=== PATIENT | male | born 1955 | race Caucasian/White ===

== ENCOUNTER 2016-05-06 20:38 | Inpatient (IN) | payer OTHER ==
--- NOTE | 2016-05-06 20:51 | CPEKG ---
Heart Rate: 110 RR Interval: 545 P-R Interval: 164 QRSD Interval: 88 QT Interval: 320 QTC Interval: 433 P [place]: 66 QRS [place]: 77 T Wave [place]: 72 EKG Severity - ABNORMAL ECG - EKG Impression: SINUS TACHYCARDIA EKG Impression: ATRIAL PREMATURE COMPLEX EKG Impression: PROBABLE INFERIOR INFARCT, OLD Electronically Signed By: Clement Valladares 06-May-2016 23:33:26
--- NOTE | 2016-05-06 20:56 | EDPHY ---
H & P Stated Complaint: pt c/o cp, nausea, intermittent sob, anal fissure surg yesterday HPI/ROS: HPI CHIEF COMPLAINT: Chest tightness, pressure sensation, chills, night sweats, nausea HISTORY OF PRESENT ILLNESS: this patient very pleasant 60-year-old male he is visiting [place] from out of town they live in [place], was here yesterday had anal fissure repair under general anesthesia, presents to the emergency room by ambulance night with chest discomfort he describes it as a pressure band like sensation across his chest with associated nausea chills rigors and night sweats. He also complains of generalized fatigue, muscle aches and joint pain. This patient decided to come to the emergency room tonight as his chest discomfort bandlike pressure sensation across his chest persisted. He was concerned that this may be cardiac in origin. Past Medical History: Coronary artery disease with 1 stent in his LAD. Past Surgical History: nephrectomy for renal donation, recent anal fissure tear repair Social History: remote history of smoking, denies drugs or daily alcohol use, lives in [place] Family History: noncontributory ROS REVIEW OF SYSTEMS: A comprehensive 10 point review of systems is otherwise negative aside from elements mentioned in the history of present illness. Exam Constitutional triage nursing summary reviewed, vital signs reviewed, awake/ alert. ( vital signs noted to be abnormal, hypotensive, tachycardic) Eyes normal conjunctivae and sclera, EOMI, PERRLA. HENT normal inspection, atraumatic, moist mucus membranes, no epistaxis, neck supple/ no meningismus, no raccoon eyes. Respiratory clear to auscultation bilaterally, normal breath sounds, no respiratory distress, no wheezing. Cardiovascular rate normal, regular rhythm, no murmur, no edema, distal pulses normal. Gastrointestinal soft, non-tender, no rebound, no guarding, normal bowel sounds, no distension, no pulsatile mass. Genitourinary no CVA tenderness. Musculoskeletal no midline vertebral tenderness, full range of motion, no calf swelling, no tenderness of extremities, no meningismus, good pulses, neurovascularly intact. Skin pink, warm, & dry, no rash, skin atraumatic. Neurologic awake, alert and oriented x 3, AAOx3, moves all 4 extremities equally, motor intact, sensory intact, CN II-XII intact, normal cerebellar, normal vision, normal speech. Psychiatric normal mood/affect. Heme/Lymph/Immune no lymphadenopathy. Differential diagnosis includes but is not limited to: ACS, Cardiogenic shock, pulmonary embolism, atypical chest pain, pneumothorax, pneumonia, pulmonary embolism, aortic dissection, congestive heart failure, tumor, musculoskeletal pain, esophageal pain, GERD, peptic ulcer disease, pancreatitis Medical Decision Making: this patient had an IV established will have 2 placed, he received IV fluid bolus due to hypotension when he arrived here. We will check an EKG, chest x-ray, blood work, we will rule out pulmonary embolism, rule out ACS. Patient medicated to see if we can get his chest discomfort improved. We will test influenza due to chills muscle aches and joint pain, will check blood cultures. Check x-ray to rule out pneumonia. We will re- evaluate him after IV fluids. EKG interpretation by me on record in [employer] system. Impression Time of EKG this is sinus tachycardia rate of 110, Q-waves present in inferior leads consistent with an old OH, no ST elevation, no significant ST depression, or significant T-wave abnormalities. Intervals are appropriate. Re-evaluation: 2118: At this time patient has had repeat blood pressure at 65/40. Is taking by a manual blood pressure cuff and is real. This times patient is speaking with me he states that he feels fatigued and generalized weak. This time is having a 2nd IV established, a L fluid bolus has been ordered as well as a 2nd 1. I will do a bedside ultrasound to evaluate his cardiac function at this time. 2144: I re-evaluated this patient I did perform a bedside fast exam which did not reveal anything acute. 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 I was able to visualize the pelvis, cardiac , and renal hepatic region. There is no free fluid. At this time this patient is getting a 2nd L fluid. His blood pressure is now 75/50. I did evaluate his rectal region there is some induration and possibly cellulitis. He is exquisitely tender. There is no crepitus. I have ordered this patient IV vancomycin IV Zosyn as it appears most likely this patient is septic. His bedside ultrasound of his heart reveals no cardiac effusion and there appears to be good motion and ventricular screens. I do not see right ventricular heart strain on brief bedside ultrasound. Critical Care: Total Critical Care Time Spent Managing this Patient: 60Minutes. This time was spent Exclusively with this patient. This Care was exclusive of procedures. The Organ System/life at risk was hemodynamics, renal, cardiovascular This Patient was in Critical Condition because severe hypotension 2200: Patient is back from CT scan of his pelvis without contrast due to the a creatinine of 2. I do see soft tissue stranding along the left gluteal cheek, there is a fluid collection present. Most likely gluteal cellulitis rectal abscess. This may be his cause of hypotension. He does have a leukocytosis. He is afebrile here. He is receiving his 3rd L of fluid. His repeat blood pressure at this time is 69/50. I have ordered a stat echocardiogram to make sure this is not his heart as well. If this patient remains hypotensive he may need a central line placed and vasopressor started. ED x-ray chest one view: negative for acute cardiopulmonary disease. Specifically I do not appreciate cardiomegaly, or focal pneumonia infiltrate. Mediastinum is narrow. Image interpreted by myself 2214: Spoke with Dr.Sandra Victor who will come and see and evaluate the patient. 2236: Patient's CT scan reviewed by Dr. Duarte. This shows a perianal stranding, consistent with a cellulitis there is a small fluid collection with a perianal abscess. 2250: Patient this time is getting a echocardiogram. After this echocardiogram is complete I will place a triple-lumen catheter in his right IJ under ultrasound guidance for vasopressor administration. 2250: Dr. Alexandra Victor has seen evaluated the patient she was able to extrude he small amount of pus from the perianal perirectal region small abscess. A wick drain has been placed. 2250: of note on exam I do not appreciate any Josiah gangrene or significant swelling or redness to the scrotum. It is localized to the left gluteus, inner rectal anal region. 2329: Central line placed under sterile conditions by myself. PROCEDURE: A time-out was taken. patient and at bedside verbally consented to this procedure with the triple-lumen catheter. They understand risk versus benefit. This patient had a right IJ triple-lumen catheter placed under ultrasound guidance. This procedure was done sterilely. There were no complications. patient tolerated this procedure very well. There was good blood flow through all 3 ports Dark venous blood,. Wire was returned. Line was placed under ultrasound guidance. Chest x-ray is pending at this time for evaluation of line placement. Once line is confirmed to be in appropriate position patient had Levophed started at 10 mics. no chest pain or shortness of breath or significant neck pain after line placement. Spoke with Dr. Jaramillo of Cardiology he did evaluate see the echo the echo shows ejection fraction of 50-55% no wall motion abnormality, no pericardial effusion , normal appearing echocardiogram. 2330: At this time patient is in septic shock with an infection perirectal region. Patient is getting broad-spectrum antibiotics including IV vancomycin and IV Zosyn. Blood cultures have been sent. A triple-lumen catheter has been established and Levophed is being started. He received a total 4 L of fluid prior to Levophed being started. Lactic acid 2.0. He is stable but in critical condition will be transferred to the ICU for close monitoring. ED x-ray chest one view: This is for line placement. The right IJ central line courses in a correct matter. The tip and in the right atrium. I do not appreciate a pneumothorax on chest x-ray. Source: Patient - Medical/Surgical History Hx Asthma: No Hx Chronic Respiratory Disease: No Hx Diabetes: No Hx Cardiac Disease: Yes Hx Renal Disease: No Hx Cirrhosis: No Hx Alcoholism: No Hx HIV/AIDS: No Hx Splenectomy or Spleen Trauma: No Other PMH: AMI, 1 kidney, hypertension, hyperlipidemia - Social History Smoking Status: Former smoker Constitutional: Initial Vital Signs Temperature (C) 36.9 C 05/06/16 20:41 Heart Rate 118 H 05/06/16 20:41 Respiratory Rate 20 05/06/16 20:41 Blood Pressure 82/56 L 05/06/16 20:41 O2 Sat (%) 91 L 05/06/16 20:41 O2 Delivery Mode Room Air O2 (L/minute) 2 Allergies/Adverse Reactions: No Known Allergies Allergy (Verified 05/06/16 20:44) Home Medications: Medication Instructions Recorded Aspirin [Aspirin 325 mg (*)] 325 mg PO DAILY 05/06/16 Carvedilol [Coreg (*)] 12.5 mg PO DAILY 05/06/16 Lisinopril [Zestril 2.5 mg (*)] 2.5 mg PO DAILY 05/06/16 Simvastatin [Zocor] 20 mg PO DAILY 05/06/16 traZODone [traZODONE 100MG (*)] 100 mg PO HS PRN 05/06/16 Medical Decision Making - Data Points Laboratory Results: Laboratory Results 05/06/16 20:56 05/06/16 20:56 Microbiology Results: MICROBIOLOGY 05/06/16 21:20 Blood Blood Culture - Preliminary 05/06/16 21:29 Blood Blood Culture - Preliminary Medications Given: Discontinued Medications Furosemide (Lasix Injection) 20 mg IVP ONCE ONE Stop: 05/07/16 13:34 Last Admin: 05/07/16 13:50 Dose: 20 mg Hydrocortisone (Solucortef) 100 mg IVP Q8HRS YONI Stop: 11/03/16 13:59 Last Admin: 05/08/16 05:37 Dose: 100 mg Sodium Chloride (Ns) 1,000 mls @ 0 mls/hr IV ONCE ONE PRN Reason: Wide Open Stop: 05/06/16 21:16 Last Admin: 05/06/16 21:30 Dose: 1,000 mls Magnesium Sulfate (Magnesium Sulf 2 Gm (Premix)) 50 mls @ 50 mls/hr IV EDNOW ONE Stop: 05/06/16 22:16 Last Admin: 05/06/16 21:45 Dose: 50 mls Vancomycin/Sodium Chloride (Vancomycin 1 Gm (Premix)) 250 mls @ 250 mls/hr IV EDNOW ONE PRN Reason: Protocol Stop: 05/06/16 22:30 Last Admin: 05/06/16 21:55 Dose: 250 mls Piperacillin/Tazobactam/Dextrose (Zosyn (Premix)) 100 mls @ 200 mls/hr IV EDNOW ONE PRN Reason: Protocol Stop: 05/06/16 22:00 Last Admin: 05/06/16 23:15 Dose: 100 mls Sodium Chloride (Ns) 1,000 mls @ 0 mls/hr IV ONCE ONE PRN Reason: Wide Open Stop: 05/06/16 21:33 Last Admin: 05/06/16 21:00 Dose: 1,000 mls Sodium Chloride (Ns) 1,000 mls @ 0 mls/hr IV ONCE ONE PRN Reason: Wide Open Stop: 05/06/16 22:02 Last Admin: 05/06/16 21:45 Dose: 1,000 mls Norepinephrine 4 mg/ Dextrose 500 mls @ 0 mls/hr IV EDNOW ONE; Titrate PRN Reason: Protocol Stop: 05/06/16 23:01 Last Admin: 05/06/16 23:40 Dose: 500 mls Norepinephrine 4 mg/ Dextrose 500 mls @ 0 mls/hr IV CONT YONI; Titrate PRN Reason: Protocol Stop: 11/03/16 00:29 Last Admin: 05/07/16 09:12 Dose: 500 mls Vasopressin/Dextrose (Vasopressin 0.1 Unit/Ml (Premix)) 250 mls @ 24 mls/hr IV CONT YONI Stop: 11/03/16 00:29 Last Admin: 05/07/16 11:17 Dose: 250 mls Magnesium Sulfate/Dextrose (Magnesium Sulf 1 Gm (Premix)) 100 mls @ 100 mls/hr IV ONCE ONE Stop: 05/07/16 08:45 Last Admin: 05/07/16 09:18 Dose: 100 mls Dobutamine HCl 500 mg/ (Dextrose) 290 mls @ 0 mls/hr IV CONT YONI; Titrate PRN Reason: Protocol Stop: 11/03/16 08:29 Last Admin: 05/07/16 09:24 Dose: 290 mls Ondansetron HCl (Zofran) 4 mg IVP EDNOW ONE Stop: 05/06/16 23:49 Last Admin: 05/06/16 23:50 Dose: 4 mg Departure - Departure Disposition: [facility] Inpatient Acute Clinical Impression: Hypotension, Rectal cellulitis, Rectal abscess, Septic shock Condition: Critical
[2016-05-06 21:06] LABS: ADD MORPH? NO; ADD SCAN? YES; ATYPICAL LYMPHOCYTE FLAG 0 (0-99); FRAGMENT RBC FLAG 0 (0-99); HEMATOCRIT 35.2 % (40.0-51.0); HEMOGLOBIN 12.1 g/dL (13.7-17.5); LIPEMIA HEMOLYSIS FLAG 90 (0-99); MEAN CELL HEMOGLOBIN 30.5 pg (27.9-34.1); MEAN CELL HEMOGLOBIN CONCENTR. 34.4 g/dL (32.4-36.7); MEAN CELL VOLUME 88.7 fL (81.5-99.8); MEAN PLATELET VOLUME 9.5 fL (8.7-11.7); PLATELET CLUMPS FLAG 10 (0-99); PLATELET COUNT 183 10^3/uL (150-400); RED BLOOD CELL COUNT 3.97 10^6/uL (4.40-6.38); RED CELL DISTRIBUTION WIDTH 12.3 % (11.5-15.2)
[2016-05-06 21:08] LABS: INR 1.37 (0.83-1.16); PROTIME(PATIENT) 16.9 SEC (12.0-15.0)
[2016-05-06 21:09] LABS: APTT 31.1 SEC (23.0-38.0)
[2016-05-06 21:10] LABS: LEFT SHIFT FLG 130 (0-99)
[2016-05-06 21:13] LABS: ALANINE AMINOTRANSFERASE 42 IU/L (21-72); ALBUMIN 3.6 g/dL (3.5-5.0); ALKALINE PHOSPHATASE 68 IU/L (38-126); ANION GAP 12 mEq/L (8-16); ASPARTATE AMINOTRANSFERASE 37 IU/L (17-59); BILIRUBIN,TOTAL 1.3 mg/dL (0.1-1.4); BILIRUBIN-CONJUGATED 0.9 mg/dL (0.0-0.5); BILIRUBIN-UNCONJUGATED 0.4 mg/dL (0.0-1.1); CALCIUM 8.4 mg/dL (8.5-10.4); CARBON DIOXIDE 25 mEq/l (22-31); CHLORIDE 95 mEq/L (97-110); CREATININE 2.2 mg/dL (0.7-1.3); GLOMERULAR FILTRATION RATE 31; GLUCOSE 98 mg/dL (70-100); MAGNESIUM 1.2 mg/dL (1.6-2.3); POTASSIUM 4.4 mEq/L (3.5-5.2); SODIUM 132 mEq/L (134-144); TOTAL PROTEIN 6.1 g/dL (6.3-8.2)
[2016-05-06] MEDS ORDERED: NS 1,000 ML IV ONE ×3 (21:15→22:01)
[2016-05-06] MEDS ORDERED: MAGNESIUM SULF 2 GM/WATER 50 ML IV ONE (21:17)
[2016-05-06 21:25] LABS: CREATINE KINASE-MB FRACTION 1.31 ng/mL (0-3.19); TROPONIN I 0.018 ng/mL (0-0.034)
[2016-05-06 21:31] LABS: ADD DIFF? YES; SCAN POSITIVE
[2016-05-06] MEDS ORDERED: PIPERACILLIN/TAZO 4.5 GM/DEX 100 ML IV ONE (21:31)
[2016-05-06] MEDS ORDERED: VANCOMYCIN HCL/NORMAL SALINE 250 ML IV ONE (21:31)
[2016-05-06 21:34] LABS: PLATELET ESTIMATE ADEQUATE (ADEQ)
[2016-05-06] MEDS ORDERED: NOREPINEPHRINE BITARTRATE 4 MG in NS 500 ML IV ONE (22:49)
[2016-05-06] MEDS ORDERED: NOREPINEPHRINE 4 MG/4 ML INJ IV ONE (22:50)
[2016-05-06] MEDS ORDERED: NOREPINEPHRINE BITARTRATE 4 MG in D5W 500 ML IV ONE (23:00)
--- NOTE | 2016-05-06 23:30 | CT ---
CT pelvis without contrast Indication: Anal fissure. Status post anal abscess drainage. Bacteremia. Technique: 1.5 mm thin axial images are performed from the iliac crest to the proximal femurs without intravenous contrast. Coronal and parasagittal reformatted images are reviewed on workstation Findings: There is a inflammatory change around the posterior left perianal region, extending to the subcutaneous fat in the buttock. There is a small Ditzel of air, and a very little amount of fluid vizcaino rrounding the air, towards the left side of the anal canal, measuring maximally 2.2 cm long by 8mm wi de. This is concordant with known recent. A no abscess drainage. The amount of fluid that is remainin g is very little. The fluid otherwise is limited because locally. Given the noncontrasted setting, th ere is no evidence for superior extension of any abscess. No free fluid or ascites in the retroperito neum. Bowels are overall normal. Impression: Very little inflammatory change in the perianal area, with moderate amount of cellulitic change in the left buttock. Very little residual perianal fluid. Findings are discussed with Dr. Clement Valladares.
[2016-05-06] MEDS ORDERED: ONDANSETRON 4 MG/2 ML VIAL ONE (23:44)
[2016-05-06] MEDS ORDERED: ONDANSETRON 4 MG/2 ML VIAL IVP ONE (23:48)
--- NOTE | 2016-05-06 23:52 | GCON ---
[f rep st] CONSULTATION CONSULTATION/HISTORY AND PHYSICAL REFERRING PHYSICIAN: Clement Valladares MD HISTORY OF PRESENT ILLNESS: The patient is a 60-year-old man visiting from [place], who presente d to the emergency room yesterday with 2 weeks of perianal pain, particularly with bowel movements. On presentation yesterday, he was taken to the operating room for exam under anesthesia, where no abs cess was found, but a very large posterior fissure was noted and lateral sphincterotomy performed by Dr. Mcnally. He re-presented tonight complaining of myalgia, fatigue, chills and arthralgias. He was noted to have a white blood cell count of 12. CT scan of the pelvis without contrast shows some perirectal induration and stranding on the left side. PAST MEDICAL HISTORY: Coronary artery disease complicated by a myocardial infarction, status post st ent placement in the LAD; anal fissure, as per history of present illness. PAST SURGICAL HISTORY: Status post donor nephrectomy; and lateral sphincterotomy, per history of pre sent illness. MEDICATIONS: He takes lisinopril, carvedilol, simvastatin, trazodone, and aspirin. ALLERGIES: He has no known drug allergies. SOCIAL HISTORY: He is , visiting from [facility] with his . He quit smoking yea rs ago. REVIEW OF SYSTEMS: He denied recent chest pain until [facility], in which he had chest pressure. He de nied shortness of breath. He complained of arthralgia, myalgia, fevers, chills, fatigue, and nausea. He stated his perianal pain was slightly improved. PHYSICAL EXAMINATION: VITAL SIGNS: His temperature is 37.3, pulse 106, blood pressure 83/49, respir atory rate 20. HE is satting 95% on 4 L per nasal cannula. GENERAL: He is sleepy but responds to q uestions appropriately. LUNGS: Clear to auscultation. HEART: A regular rhythm and is tachycardic. RECTAL: He has induration and fluctuance now of the left perianal region, as well as a large poste rior fissure noted on inspection. He also has redness and swelling of his scrotum. ASSESSMENT AND PLAN: Sepsis due to soft tissue infection of the perianal and perineal areas. Fluid resuscitation has begun in the emergency department, and he will be admitted to the ICU under the hos pitalist service for IV antibiotics, pressors, and continued fluid resuscitation and electrolyte repl acement. They will start broad-spectrum antibiotics. Meanwhile, I will perform an exam at the [facility] and I and D of the left perianal area under local anesthetic to explore for any undrained fluid. /[id number]/MODL
--- NOTE | 2016-05-07 00:07 | DX ---
AP portable chest Indication: Triple-lumen central line placement Findings: Right jugular central line placement terminating in SVC. No pneumothorax. Lungs are clear. Heart and mediastinum are normal for patient's age. Impression: No pneumothorax after central line placement.
[2016-05-07] MEDS ORDERED: ONDANSETRON 4 MG/2 ML VIAL IVP PRN (00:14)
--- NOTE | 2016-05-07 00:24 | DX ---
Single view chest Indication: Chest pressure. No priors for comparison. Findings: Lungs are clear. Heart and mediastinum are normal. No consolidation or effusion. No subdiap hragmatic free air. Impression: Clear lungs.
[2016-05-07 01:03] LABS: MIXED VENOUS O2 SATURATION 63 % (65-75)
--- NOTE | 2016-05-07 01:37 | GHP ---
[f rep st] HISTORY AND PHYSICAL DATE OF ADMISSION: 05/06/2016 CHIEF COMPLAINT: Fevers and chest pain. HISTORY OF PRESENT ILLNESS: This is a 60-year-old man who presents with fevers, rigors as well as a bandlike sensation across his chest associated with shortness of breath. His past medical history is notable for coronary artery disease with a stent to his LAD about 6 years ago as well as donating a kidney 7 years ago. About 2 weeks ago, he was diagnosed with an anal fissure. He lives in [place], is visiting out [facility] for the holidays. Yesterday, he presented to the emergency room here with severe anal pain. He was taken to the operating room by Dr. Mcnally who was concerned about an anal abscess. He was exa mined under anesthesia and did not find an abscess at that point, only a large anal fissure. He was then sent home. He re-presented today with fevers, chills, rigors and chest pain. In the emergency department here, he underwent an exam by Dr. Victor who did find a very deep abscess. She was able t o express some pus which was sent for culture. She also noted that his left testicle was quite large . It was also erythematous. He was hypotensive, thought to be in septic shock; however, given his c ardiac history, a stat ultrasound was ordered. This showed no wall motion abnormalities with an EF o f about 55%. PAST MEDICAL/SURGICAL HISTORY: 1. Coronary artery disease, status post stent to his LAD. 2. Donation of 1 kidney. MEDICATIONS: Please see medication reconciliation. ALLERGIES: None. FAMILY HISTORY: He is adopted. SOCIAL HISTORY: Quit smoking tobacco about 3 months ago. He lives in [place]. He is here with his visiting his son and his son's natalie who live in [place]. REVIEW OF SYSTEMS: A 10-point review of systems is conducted and is negative except per HPI. PHYSICAL EXAMINATION: VITAL SIGNS: Initial blood pressure was 82/56, as low as 69/52, heart rate makcey s been in the low 100s, respiration rate 18, saturating 95% on 4 L, temperature is 37.3. GENERAL: T he patient is a pleasant man who appears mildly uncomfortable, otherwise in no acute distress. HEENT : Mucous membranes moist. NECK: Shows a right IJ in place. CARDIOVASCULAR: Shows a regular rate and rhythm. No murmurs, rubs, or gallops. No elevated JVP. No lower extremity edema. PULMONARY: Lungs clear to auscultation bilaterally. ABDOMEN: Soft, nontender, nondistended. : Shows his le ft testicle to be significantly swollen, about the size of a grapefruit, quite erythematous and warm. His perianal region has just been recently surgically explored but there is actually less erythema there. SKIN: No rash. NEUROLOGIC: Shows him to be alert and oriented x3. He is moving all extrem ities. PSYCHIATRIC: Shows normal mood and affect. LABORATORY DATA: White count is 12.1. He has 26% bands and 53% neutrophils. Hemoglobin is 12.1. D -dimer is 1.2. INR is 1.3. Lactate is 2.0. Sodium is 132, creatinine is 2.2. BNP is 3120. Influe nza was negative. DATA: 1. I discussed this with Dr. Victor. 2. I personally viewed and interpreted his most recent chest x-ray that shows a central line in good position with no complications. 3. I reviewed his pelvis CT which shows some inflammatory change with a small amount of air. 4. EKG, which I personally reviewed and interpreted, shows sinus tachycardia. He has Q-waves in II, III, F. I do not see any acute ischemic changes. IMPRESSION AND PLAN: A 60-year-old man who presents with septic shock: 1. Septic shock: Source is likely perianal abscess, status post I and D by Dr. Victor. He has a ce ntral line in place. He is currently getting pressors. He has received appropriate fluid. He will be placed in the ICU. I spent 55 minutes of critical care time managing this diagnosis. 2. Perianal abscess: As above, status post I and D by Dr. Victor. The purulent exudate has been se nt for culture. He also has blood cultures pending. Currently getting broad-spectrum antibiotics wi th vancomycin and Zosyn. He has significant erythema extending over his left testicle. At this poin t, I do not think this is Josiah gangrene as this likely stems from the perianal abscess though we will need to monitor this very closely. If the testicle continues to enlarge, would involve Urology though I do not think an emergent consult is needed right now. Taking him to the operating room woul d be quite dangerous given his hemodynamic instability, as well. 3. Chest pain: I think that this is most likely demand ischemia in the setting of his septic shock. Fortunately, his echocardiogram was relatively unremarkable. Will check another troponin in the mo rning. Also I have reviewed his EKG which was normal. Will involve Cardiology if he has any signifi cant troponin elevation. 4. Acute kidney injury: Concerning in the setting of one kidney. This is likely due to sepsis. He is also on lisinopril for his heart. Will hold nephrotoxins and aggressively hydrate overnight. Wi ll recheck in the morning. 5. Mild hyponatremia. 6. Coagulopathy. 7. History of coronary artery disease, status post stent to his LAD. 8. Code status. I discussed this with him and his . He would want to be full code, full tube. 9. VTE risk: He is moderate to high. I have given him subcu heparin for now. /[id number]/MODL
[2016-05-07] MEDS: VASOPRESSIN/DEXTROSE 250 ML IV SCH ×2 (01:54→11:17)
[2016-05-07 02:07] LABS: MIXED VENOUS O2 SATURATION 59 % (65-75)
[2016-05-07 03:03] LABS: GLUCOSE 113 mg/dL (70-100)
[2016-05-07 03:07] LABS: MIXED VENOUS O2 SATURATION 58 % (65-75)
[2016-05-07] MEDS: PROMETHAZINE HCL 25 MG/ML VIAL IVP PRN ×3 (03:17→21:03)
[2016-05-07 03:47] LABS: MIXED VENOUS O2 SATURATION 63 % (65-75)
[2016-05-07] MEDS: NOREPINEPHRINE BITARTRATE 4 MG in D5W 500 ML IV SCH ×2 (04:56→09:12)
[2016-05-07] MEDS: DEXTROSE IV SCH ×4 (05:24→23:46)
[2016-05-07] MEDS: TAZOBACTAM IV SCH ×4 (05:24→23:46)
[2016-05-07] MEDS: PIPERACILLIN IV SCH ×4 (05:24→23:46)
[2016-05-07] MEDS: HEPARIN 5,000 UNIT/0.5 ML SYR SC SCH ×3 (05:25→22:00)
[2016-05-07 05:30] LABS: MIXED VENOUS O2 SATURATION 55 % (65-75)
[2016-05-07 05:46] LABS: ADD DIFF? YES; ADD MORPH? NO; ATYPICAL LYMPHOCYTE FLAG 0 (0-99); FRAGMENT RBC FLAG 0 (0-99); HEMATOCRIT 32.6 % (40.0-51.0); LIPEMIA HEMOLYSIS FLAG 80 (0-99); MEAN CELL HEMOGLOBIN 30.6 pg (27.9-34.1); MEAN CELL HEMOGLOBIN CONCENTR. 33.7 g/dL (32.4-36.7); MEAN CELL VOLUME 90.6 fL (81.5-99.8); MEAN PLATELET VOLUME 9.8 fL (8.7-11.7); PLATELET CLUMPS FLAG 20 (0-99); PLATELET COUNT 144 10^3/uL (150-400); RED CELL DISTRIBUTION WIDTH 12.6 % (11.5-15.2)
[2016-05-07 05:47] LABS: ADD SCAN? NO; LEFT SHIFT FLG 300 (0-99)
[2016-05-07 05:56] LABS: INR 1.75 (0.83-1.16); PROTIME(PATIENT) 20.5 SEC (12.0-15.0)
[2016-05-07 06:02] LABS: ALANINE AMINOTRANSFERASE 39 IU/L (21-72); ALBUMIN 2.8 g/dL (3.5-5.0); ALKALINE PHOSPHATASE 60 IU/L (38-126); ANION GAP 11 mEq/L (8-16); ASPARTATE AMINOTRANSFERASE 34 IU/L (17-59); CALCIUM 7.3 mg/dL (8.5-10.4); CARBON DIOXIDE 20 mEq/l (22-31); CHLORIDE 98 mEq/L (97-110); CREATININE 2.1 mg/dL (0.7-1.3); GLOMERULAR FILTRATION RATE 33; GLUCOSE 118 mg/dL (70-100); MAGNESIUM 1.6 mg/dL (1.6-2.3); POTASSIUM 5.1 mEq/L (3.5-5.2); SODIUM 129 mEq/L (134-144); TOTAL PROTEIN 5.3 g/dL (6.3-8.2)
--- NOTE | 2016-05-07 06:14 | SOAPPROG ---
SOAP Progress Note Assessment/Plan: Assessment: 2 days s/p lateral sphincterotomy for large posterior anal fissure by Dali 1 day s/p I&D of high perirectal abscess by Kayleigh significant erythema and edema of scrotum Plan: continue broad spectrum IV antibiotic therapy, pressors, supportive care follow perineal soft tissue infection for possible Josiah's 05/07/16 06:11 Subjective: pain controlled Objective: Vital Signs Temp Pulse Resp BP Pulse Ox 36.8 C 110 H 25 H 116/79 94 05/07/16 03:00 05/07/16 06:00 05/07/16 06:00 05/07/16 06:00 05/07/16 06:00 Laboratory Results 05/07/16 05:10 05/07/16 05:10 05/06/16 05/07/16 05/08/16 05:59 05:59 05:59 Intake Total 3500 Output Total 800 Balance 2700 PT 20.5 SEC (12.0-15.0) H 05/07/16 05:10 INR 1.75 (0.83-1.16) H 05/07/16 05:10 Physical Exam - Physical Exam General Appearance: alert Male Genitalia: other (scrotal edema and erythema about the same) ICD10 Worksheet Patient Problems: Problems Problem Status Diagnosed Hypotension Acute Rectal abscess Acute Rectal cellulitis Acute Rectal pain Acute Septic shock Acute
[2016-05-07 06:18] LABS: MIXED VENOUS O2 SATURATION 54 % (65-75)
[2016-05-07] MEDS: NS 1,000 ML IV SCH ×2 (06:22→15:55)
[2016-05-07 06:35] LABS: TROPONIN I 0.027 ng/mL (0-0.034)
[2016-05-07 06:40] LABS: PLATELET ESTIMATE ADEQUATE (ADEQ)
[2016-05-07] MEDS ORDERED: PROTOCOL MAGNESIUM 1 DOSE IV PRN (07:05)
[2016-05-07 07:20] LABS: MIXED VENOUS O2 SATURATION 56 % (65-75)
[2016-05-07] MEDS ORDERED: MAGNESIUM SULF 1 GM/DEXTROSE 100 ML IV ONE (07:46)
[2016-05-07] MEDS ORDERED: DOBUTamine 500 MG in D5W 250 ML IV SCH (08:30)
--- NOTE | 2016-05-07 08:30 | ECHO ---
[id number] + + [address] : : [place] [address] : : [phone] + + Adult Echocardiographic Report + + :Name: TIFFANIE JACOBS Date: 05/06/2016 11:00 PM : : Hospital Admission Number: [id number] Location: ER: :: 1955 Gender: Male : :Age: 60 yrs Race: WH : :Reason For Study: hypotension : :History: No previous : + + MMode/2D Measurements & Calculations IVSd: 1.1 cm LVIDd: 4.8 cm FS: 25.6 % LVLd ap4: 9.1 cm LVPWd: 0.95 cm LVIDs: 3.6 cm EDV(Teich): 109.6 mlEDV(MOD-sp4): 116.0 ml ESV(Teich): 54.4 ml LVLs ap4: 8.3 cm EF(Teich): 50.3 % ESV(MOD-sp4): 48.0 ml EF(MOD-sp4): 58.6 % SV(MOD-sp4): 68.0 ml Normal Measurement Values: + + :LVIDd (3.5-5.7cm) IVSd (0.6-1.1cm) LVPWd (0.6-1.1cm) Aortic Root (2.0-3.7cm)Left Atrium (1.5-4.0cm): :LV Vol(d) (76-115ml) LV Vol(s) (29-48ml) Ejec Fraction (50-65%)PV Delbert (0.6- 1.2m/s) TV Delbert (0.4-1.0m/s) : :MV E Delbert (0.8-1.0m/s)MV A Delbert (0.3-1.0m/s)LVOT Delbert (0.7-1.2m/s) Asc Ao Delbert ( 0.9-1.8m/s) : + + Doppler Measurements & Calculations Ao V2 max: PA V2 max: PI end-d delbert: TR max delbert: 107.0 cm/sec 88.0 cm/sec 111.0 cm/sec 189.0 cm/sec Ao max PG: PA max PG: TR max P.6 mmHg 3.1 mmHg 14.3 mmHg Ao mean PG: RAP systole: 2.0 mmHg 15.0 mmHg Ao V2 mean: RVSP(TR): 29.3 mmHg 71.4 cm/sec Ao V2 VTI: 16.3 cm Left Ventricle The left ventricle is normal in size and function. There is normal left ventricular wall thickness. Ejection Fraction = 50 - 55%. Right Ventricle The right ventricle is normal size. Atria The left atrial size is normal. Right atrial size is normal. The interatrial septum is intact with no evidence for an atrial septal defect. Mitral Valve The mitral valve is normal in structure and function. There is no mitral regurgitation noted. Tricuspid Valve The tricuspid valve is normal in structure and function. There is mild tricuspid regurgitation. Right ventricular systolic pressure is normal. Aortic Valve The aortic valve is normal in structure and function. There is no aortic stenosis. There is no aortic insufficiency. Pulmonic Valve The pulmonic valve is normal in structure and function. There is no pulmonic valvular stenosis. Trace pulmonic valvular regurgitation. Pericardium/Pleural There is a fat pad seen. There is no pericardial effusion. Conclusion A complete two-dimensional transthoracic echocardiogram was performed (2D, M-mode, Doppler and color flow Doppler). This is a limited echo to assess overall function. The left ventricle is normal in size and function. Ejection Fraction = 50-55%. Mild TR and trace PI Final Reading Physician: Stevie Busch signed on 05/07/2016 08:29 AM Ordering Physician: Clement Valladares Performed By: Britney Killian
--- NOTE | 2016-05-07 08:39 | HOSPPROG ---
Hospitalist Progress Note Assessment/Plan: #Septic shock; -due to perirectal abscess -POD #[address] Victor -cultures with gram + cocci. Cont Vanc/Zosyn -currently on Vaso, Levophed and Dobutamine started this morning -ID consulting today #Perirectal abscess -plan as stated above #Leukocytosis -due to above. Blood cx NGTD -fluid cx pending #Pain -currently well-controlled on oxycodone #CAD -stent to LAD in 2009. 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 Hold Coreg and MARIE-I #VINI: due to hypotension #Anal fissure -POD #2 lateral sphincterotomy #Hypomagnesium -repleting #Diet: NPO #DVT ppx: SQH #Disp: warrants ICU admission: requiring IV pressors and abx Subjective: burning pain in scrotum. Nausea this morning Objective: Vital Signs Temp Pulse Resp BP Pulse Ox 36.8 C 110 H 28 H 134/85 H 93 05/07/16 08:00 05/07/16 08:00 05/07/16 08:00 05/07/16 08:00 05/07/16 08:00 Microbiology 05/06/16 22:36 Gram Stain - Final Anus - Swab Laboratory Results 05/07/16 05:10 05/07/16 05:10 05/06/16 05/07/16 05/08/16 05:59 05:59 05:59 Intake Total 4903.1 Output Total 800 Balance 4103.1 PT 20.5 SEC (12.0-15.0) H 05/07/16 05:10 INR 1.75 (0.83-1.16) H 05/07/16 05:10 - Physical Exam Constitutional: uncomfortable Eyes: PERRL, anicteric sclera Ears, Nose, Mouth, Throat: moist mucous membranes, hearing normal Cardiovascular: regular rate and rhythym, no murmur, rub, or gallop Respiratory: no respiratory distress, reduced air movement (decreased BS at bases) Gastrointestinal: normoactive bowel sounds, soft, non-tender abdomen Genitourinary: other (scrotal edema, painful with touch. Erythematous.) Skin: warm Musculoskeletal: full muscle strength Neurologic: AAOx3 Psychiatric: interacting appropriately ICD10 Worksheet Patient Problems: Problems Problem Status Diagnosed Hypotension Acute Rectal abscess Acute Rectal cellulitis Acute Rectal pain Acute Septic shock Acute
--- NOTE | 2016-05-07 08:58 | GOP ---
[f rep st] OPERATIVE REPORT DATE OF OPERATION: SURGEON: Alexandra Victor MD PREOPERATIVE DIAGNOSIS: Soft tissue infection with possible deep left perirectal abscess. POSTOPERATIVE DIAGNOSIS: Soft tissue infection with possible deep left perirectal abscess. PROCEDURE PERFORMED: I and D of left perirectal abscess. FINDINGS: Abscess pocket of the left perirectal area, deep with minimal purulent drainage. SPECIMENS: Cloudy fluid sent for Gram stain and culture. ESTIMATED BLOOD LOSS: 10 mL. DESCRIPTION OF PROCEDURE: Local anesthetic was injected intradermally and subcutaneously at the site of left perianal induration and fluctuance. Two possible sites of fluctuance were noted; 1 cm incis ions were made at both sites using an 11 blade. A small amount of cloudy fluid was expressed, and a long cavity was entered when probed with a cotton swab. The fluid was sent for Gram stain and cultur e. The cavity was packed with half-inch Nu Gauze, and further dressed with 4 x 4 gauzes and ABD and mesh briefs. The patient tolerated the procedure well, and will be admitted to the ICU for broad-spe ctrum antibiotic therapy. INDICATIONS FOR THE PROCEDURE: Bebeto is a 60-year-old man who had lateral sphincterotomy for a lar ge posterior fissure yesterday with Dr. Mcnally after noting 2 weeks of perianal and perirectal filemon n with bowel movements. He presented today with a white count and fevers, chills, tachycardia and hy potension, noting induration and cellulitis of the perineal and perirectal area. He opted for explor ation and I and D of a possible deep perirectal abscess under local anesthetic. /[id number]/MODL
[2016-05-07] MEDS: VANCOMYCIN 1.5 GM in D5W 250 ML IV SCH (10:45)
[2016-05-07 11:10] LABS: MIXED VENOUS O2 SATURATION 59 % (65-75)
--- NOTE | 2016-05-07 11:28 | GCON ---
[f rep st] CONSULTATION CONSERVATOR ARTIFACTS CONSULTATION. REASON FOR ADMISSION: Sepsis. HISTORY OF PRESENT ILLNESS: The patient is a very pleasant 60-year-old white male with a past medica l history of coronary artery disease for which he has undergone stenting. He also has a history of a donation of 1 kidney. He presented to the emergency room with complaints of chest pressure. Two we eks prior, he was diagnosed with anal fissure. He presented to the emergency room the day before yes terday with increasing anal pain. He was taken the operating room and it was felt he may have an saray abscess but an abscess was not found at that point and he was sent home. He presented to the emerg ency room again today with chills and rigors as well as his chest tightness. He describes it as a ba ndlike across his chest without radiation. Dr. Alexandra Victor evaluated the patient, found a very ryder p abscess and some pus was expressed and was sent for culture. He is currently in the intensive care unit, feels somewhat better, though he still remains hypotensive and continues with some chest tight ness. Echocardiogram in the emergency room showed an ejection fraction of 55%. PAST MEDICAL HISTORY: Significant for donation of a kidney, coronary artery disease. PAST SURGICAL HISTORY: He had a stent to the LAD. ALLERGIES: No known allergies to medications. SOCIAL HISTORY: Previous heavy smoker, none for approximately 3 months. No significant alcohol use. He resides in [place]. He is here visiting his son. PHYSICAL EXAMINATION: VITAL SIGNS: Blood pressure is 134/85, pulse 110, respirations 28, temperatur e 36.8, oxygen saturation 98% on 2 L. GENERAL: He is a well-developed 60-year-old white male who is resting with mild chest pain. HEENT: Eyes: MICHELL. EOMI. Throat shows no erythema or tonsillar hy pertrophy. NECK: Supple. No cervical adenopathy. HEART: Regular rate and rhythm with a 2/6 systo lic murmur at the left sternal border without radiation. LUNGS: Diminished breath sounds but no whe mary. ABDOMEN: Soft, nontender. Bowel sounds present in all 4 quadrants. EXTREMITIES: There is no clubbing, cyanosis or edema. LABORATORIES: White count is 14, hemoglobin 11, hematocrit 32, platelet count is 144. INR is 1.75. Sodium 129, potassium 5.1, chloride 98, CO2 is 20, BUN 23, creatinine is 2.1. Glucose is 113. BNP is elevated at 4110. Albumin 2.8. Cultures are currently pending. Chest x-ray shows a right central line placed with no pneumothorax. Lungs are clear. IMPRESSION: 1. Chest pain. Given the history of coronary artery disease, this is likely ischemic. 2. Perianal abscess, currently on broad-spectrum antibiotics. 3. Septic shock. 4. Acute renal insufficiency. 5. Hyponatremia. 6. Coronary artery disease. RECOMMENDATIONS: 1. Agree with sepsis protocol. 2. Agree with current antibiotic coverage. 3. DVT and PE prophylaxis. 4. Stress ulcer prophylaxis. 5. Close cardiovascular monitoring. 6. We will consult Infectious Disease. 7. We will consult Cardiology. /[id number]/MODL
[2016-05-07] MEDS ORDERED: traZODone 100 MG TAB PO PRN (11:38)
[2016-05-07] MEDS ORDERED: HYDROCORTISONE 100 MG/2 ML VIAL ONE (11:50)
[2016-05-07] MEDS: HYDROCORTISONE 100 MG/2 ML VIAL IVP SCH ×2 (11:51→22:01)
[2016-05-07 12:13] LABS: MIXED VENOUS O2 SATURATION 65 % (65-75)
[2016-05-07 13:32] LABS: MIXED VENOUS O2 SATURATION 61 % (65-75)
[2016-05-07] MEDS ORDERED: FUROSEMIDE 20 MG/2 ML VIAL IVP ONE (13:33)
--- NOTE | 2016-05-07 13:40 | SOAPPROG ---
JELENA Progress Note Assessment/Plan: Assessment: Cardiology consultation performed and dictated. See dictation for full cardiology thoughts. 60 y/o man with CAD/RI in 2009 s/p LAD stent doing well from a cardiac standpoint since. Lives in [place], [place] and visiting family in [place], [place] for [place] and admitted with septic shock and anal fissure with abscess. Hypotension on IV Vasopressin and IV DBT s/p 4900cc IVF yesterday. Echo shows LVEF 53% with mild TR and estimated normal PA pressures. Troponin 0.03 and ECG sinus tachycardia with no ischemic ST/T wave changes. Clinically I do not think he is having a RI or unstable. Starting to have some volume overload from all IVFs and single kidney. PLAN: 1)Lasix 20mg IV x one now 2)obviously continue to hold home Coreg and Lisinopril along with ASA and Statin. 3)check AM labs (CBC, BMP and another cardiac troponin) 4)pCXR in am to make not having lots of pulmonary edema. 5)hopefully continue to wean IV Vasopressin and IV DBT as abscess surgically drained and on IV abx. will follow with you. Thanks. 05/07/16 13:35 Objective: Vital Signs Temp Pulse Resp BP Pulse Ox 36.8 C 111 H 20 116/75 93 05/07/16 08:00 05/07/16 13:00 05/07/16 13:00 05/07/16 13:00 05/07/16 13:00 Microbiology 05/06/16 22:36 Gram Stain - Final Anus - Swab Laboratory Results 05/07/16 05:10 05/07/16 05:10 05/06/16 05/07/16 05/08/16 05:59 05:59 05:59 Intake Total 4903.1 Output Total 800 Balance 4103.1 PT 20.5 SEC (12.0-15.0) H 05/07/16 05:10 INR 1.75 (0.83-1.16) H 05/07/16 05:10 ICD10 Worksheet Patient Problems: Problems Problem Status Diagnosed Hypotension Acute Rectal abscess Acute Rectal cellulitis Acute Rectal pain Acute Septic shock Acute
--- NOTE | 2016-05-07 14:49 | GCON ---
[f rep st] CONSULTATION INFECTIOUS DISEASE CONSULTATION DATE OF CONSULTATION: 05/07/2016 REFERRING PHYSICIAN: Delano Brenner DO REASON FOR CONSULTATION: Perirectal abscess for evaluation and opinion. CHIEF COMPLAINT: Perianal pain and left testicular pain, fever and chills. HISTORY OF PRESENT ILLNESS: This is a 60-year-old male with a past medical history significant for coronary artery disease, status post stent, who is visiting from [place], who drove here from [place] from into Saturday of last week. Prior to that, he had been dealing with perianal pain for the past couple of weeks. He had seen his primary care doctor in [place] who could not identify a fissure for certain. He was given some hydrocortisone cream to apply. After he drove here from [place], he was having much more pain. He came into the ER yesterday, and was seen by Dr. Mcnally, and had a lateral sphincterotomy done, but no obvious abscess was identified at that time. He was sent home on pain medications. He came back in later that night with complaints of fever and shaking chills, chest pressure , nausea and vomiting. He was seen in the ER by Dr. Victor who did a bedside I and D, and he was found to have a deep perirectal abscess. Cultures were taken. Blood cultures, 2 sets, were also drawn. His white blood cell count was elevated at 14.0 with a left shift and bandemia noted. He was started on vancomycin and Zosyn, and is currently in the intensive care unit on pressors. He does complain of quite a bit of pain, especially involving his left testicular area. Infectious Disease was consulted for further evaluation and opinion regarding above. REVIEW OF SYSTEMS: GENERAL: He has a headache at present. Currently, no fever or shaking chills, but did have them prior to admission. EYES: No change in vision. ENT: No sore throat, difficulty swallowing, ear pain, or ear drainage. RESPIRATORY: No shortness of breath. Had some mild sputum production, no cough. CHEST: He was complaining of some palpitations. ABDOMEN : He previously had some nausea and vomiting. Abdominal pain from the vomiting. No diarrhea. : No burning with urination. He currently has a [place] La Fuente in place now. MUSCULOSKELETAL: He does complain of muscle soreness all over. No obvious joint pain. SKIN: No rashes or wounds that he reports. The rest of the 10-point review of systems essentially negative except as above. PAST MEDICAL HISTORY: Significant for coronary artery disease, status post stent. PAST SURGICAL HISTORY: Significant for donation of the left kidney. ALLERGIES: No known drug allergies. SOCIAL HISTORY: He quit smoking about 3 months ago. He drinks alcohol socially. He lives with his in [place]. He is visiting his son and his fiancee here in [place]. No recent travel outside the country. FAMILY HISTORY: He is adopted. PHYSICAL EXAMINATION: VITAL SIGNS: Temperature current 36.8, pulse 112, blood pressure 116/82, respiratory rate 30, O2 saturations are 92% on 2 L via nasal cannula. GENERAL: Patient is resting in the intensive care unit. He is awake , alert, and oriented x3. He is complaining of pain, particularly in the left testicular area. No respiratory distress at present. HEENT: Head is normocephalic, atraumatic. Pupils are equal. There is conjunctival injection or petechiae noted. Oropharynx is clear. There is no posterior erythema or thrush or oral ulcers. CARDIOVASCULAR: S1, S2, regular rhythm. He has tachycardia. No evidence of murmur is appreciated. RESPIRATORY: Clear to auscultation anteriorly. No rhonchi or rales appreciated. ABDOMEN: Positive bowel sounds in all 4 quadrants. Soft, nontender, nondistended. No organomegaly appreciated. No suprapubic pressure or pain on palpation. : He has a swollen left testicular area with mild erythema. It is exquisitely tender to palpation. At the base of the scrotum, however, he does have some ecchymotic changes, which are not tender. In the perineum and into the buttocks regions, he has erythema involved in that area, which is indurated and tender to palpate. EXTREMITIES: No obvious lower extremity edema. SKIN: No other areas of rashes appreciated. LABS: White blood cell count is 14.3, hemoglobin 11.0, platelets are 144, bands are 54%. INR 1.7. D-dimer 1.2. Venous lactic acid 2.0. Chemistry: Sodium 129, potassium 5.1, chloride 98, bicarb 20, BUN 23, creatinine 2.1. Total bilirubin 2.0. AST, ALT, alkaline phosphatase within the normal range. Troponin 0.027. BNP 4000. Influenza type A and B negative. Blood cultures x2 sets are pending. Wound cultures from the perianal and perirectal regions show 1+ poly, 4+ gram-positive cocci in chains, 1+ gram-positive rods. Pelvis CT noted with no other inflammatory changes in the perianal area with moderate cellulitic change in the left buttock. A very minimal amount of fluid remaining. ASSESSMENT: Deep left perirectal abscess, status post incision and drainage. PLAN: The patient is currently status post I and D. Cultures are in progress from the I and D as well as blood cultures. He is currently on empiric vancomycin and Zosyn, which I will continue for now. He does have mild renal insufficiency, and antibiotics are currently being renally dosed. Based on cultures and followup lab results, we will continue to adjust antibiotics as needed. Of concern is the area at the base of the scrotum where there are ecchymotic changes as well as ongoing exquisite tenderness of the left testis on mild palpation. We will need to have a low threshold for possible reexploration of this area to ensure that there is no extension of infection into this region or possible Josiah gangrene. I discussed these concerns with Dr. Brenner. We will coordinate with Surgery as well. Consider testicular ultrasound to further evaluate in the meantime. Thank you very much for allowing us to participate in the care of your patient in consultation. /[id number]/MODL MTDD
[2016-05-07 16:08] LABS: MIXED VENOUS O2 SATURATION 69 % (65-75)
--- NOTE | 2016-05-07 16:11 | US ---
Testicular Sonography with Color and Spectral Doppler Clinical History: 60-year-old male who had surgery yesterday to drain a perianal abscess and complain s of scrotal pain, left greater than right. Technique: A linear 12 MHz transducer was used to sonographically evaluate each hemiscrotum. Color an d spectral Doppler are used. Comparison Study: CT scan of the pelvis, dated May 06, 2016. Findings: Right Hemiscrotum: There is diffuse scrotal wall thickening with some subcutaneous edema but no local ized fluid collection to suggest a scrotal abscess. As a point of reference, the right scrotal wall m easures 14 mm, and the left scrotal wall measures 20 mm in diameter. The testis is normal in size, sh ape, and position, and is homogeneous in echotexture, measuring 4.7 x 2.8 x 2.8 cm. Intratesticular v ascular flow is documented (with a brewery representative resistive index of 0.56). There is no focal orchiti s or testicular mass. There is no kiah hydrocele, nor is there a varicocele. The epididymis is upper normal in size, and does not appear hyperemic with color Doppler. Left Hemiscrotum: As mentioned above, there is left scrotal wall edema. The testis is normal in size, shape, and position, and is homogeneous in echotexture, measuring 4.6 x 3.3 x 2.7 cm. Intratesticula r arterial and venous flow is documented with a brewery representative resistive index of 0.47. There is a sm all amount of physiologic fluid within the scrotal sac. There is no varicocele. The epididymis is upp er normal in size, with no unusual hyperemia or focal epididymal mass. Impression: 1. Scrotal wall cellulitis, with no discernible abscess. 2. Normal sonographic appearance of each testis.
--- NOTE | 2016-05-07 16:39 | GCON ---
[f rep st] CONSULTATION CARDIOLOGY CONSULTATION DATE OF CONSULTATION: 05/07/2016 REASON FOR CONSULTATION: Evaluate gentleman with septic shock and severe hypotension with coronary a rtery disease, status post remote LAD stent 5 years ago. HISTORY OF PRESENT ILLNESS: I was asked by Dr. Kaylan Curiel to consult for the above reasons. The patient is a 60-year-old gentleman with the following cardiac history. In approximately 2009 while living in [place], he describes sensations of a courtney knife going through his chest and was found to have an MD and received an LAD stent. He reports he has done well from a heart standpoint since the n. He just recently moved from [place] to [place] and was set up to see a new rat exterminator in [facility] tomorrow. He thinks he had a stress test about 2 years ago, which was unremarkable. He h as not been having any symptoms of angina, heart failure, or arrhythmias. He was visiting family in [place], [place] for [place] when he was admitted yesterday with an anal fistula with abscess and septic shock. He was admitted to the ICU with severe hypotension and started on IV Levophed and IV v asopressin and IV dobutamine. A stat echo demonstrates an LVEF of 53% with mild tricuspid insufficie ncy and normal pulmonary artery pressures with no obvious pericardial effusion. His troponin is 0.03 . Overall he feels tired and in pain. He has mild shortness of breath, but reports no chest pressur e or orthopnea, or heart palpitations. His EKG shows sinus tachycardia with no ischemic ST-T wave ab normalities. His CVP is 14 and he has receive close to 5 L of fluid in the first day. PAST MEDICAL HISTORY: Coronary artery disease, as per HPI. Hypertension and hyperlipidemia. Previo us cigarette smoker, stopping 5 years ago. 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 CURRENT MEDICATIONS: Atorvastatin 10 mg per day. Dobutamine at 2 mcg/kg per minute. Vasopressin at 0.04 units. Heparin 5000 units subcu q.8 hours. Solu-Cortef 500 mg IV q.8 hours. Piperacillin ant ibiotic IV. Vancomycin antibiotic IV. Normal saline at 125 cc/hour. ALLERGIES: No known drug allergies. 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 He lives in [facility]. He denies tobacco or alcohol use. FAMILY HISTORY: Adopted. REVIEW OF SYSTEMS: The patient reports no recent cough or hemoptysis. He reports no rash. Rest of 10-point review of systems is negative. PHYSICAL EXAM: VITAL SIGNS: Pulse 89 and regular, blood pressure 115/80, respirations 20, CVP 14, w eight 96.7 kg. GENERAL: A normal appearing gentleman in no acute distress without chest pain or usi ng accessory respiratory muscles. EYES: Pupils equal, reactive to light. ENT: Oral mucosa with no cyanosis. NECK: Jugular venous pressure elevated at 10 cm. Carotid pulses 2+ bilaterally with no obvious bruits. LUNGS: Clear to auscultation bilaterally without rales, rhonchi, or wheezing. HEAR T: Normal PMI. Tachycardic. Regular rhythm with no obvious murmurs or S3. ABDOMEN: Soft and nonte nder. No guarding or rebound. EXTREMITIES: 2+ peripheral pulses including femoral and pedal pulses . No edema noted. SKIN: No cyanosis or bleeding. NECK: No nuchal rigidity. EKG: Sinus tachycardia with no ST-T wave abnormalities. LABS: White count 14.4, hematocrit 33, platelets 144,000. MCV 91. Sodium 129, potassium 5.1, chlor lalit 98, bicarb 20, BUN 23, creatinine 2.1. Glucose 113. NT proBNP level 4110. Peak cardiac troponi n 0.03. LFTs within normal limits. INR 1.75. IMPRESSION: A 60-year-old gentleman with coronary artery disease, status post LAD stent in 2010 with septic shock and severe hypotension requiring IV vasopressors from rectal abscess. From a heart sta ndpoint, he is doing okay with no evidence of MD or LV dysfunction. I am a little concerned he might be getting volume overloaded from his renal insufficiency and large volume resuscitation. RECOMMENDATIONS: 1. Would give 20 mg of IV Lasix x1 now. 2. Hopefully now that his rectal abscess has been surgically drained and on appropriate antibiotics, his hypotension will resolve and can start to wean off his vasopressors. 3. For now would hold his home carvedilol, lisinopril, statin and aspirin. 4. Would check a CBC, BMP panel, and cardiac troponin in the morning. 5. Will check a portable chest x-ray in the morning to make sure he is not developing pulmonary shiva a. Thank you for allowing me to participate in the care of Mr. Bebeto Orr. The cardiology service john saab follow along closely with you during his hospitalization. /[id number]/MODL
[2016-05-07] MEDS: TEMAZEPAM 15 MG CAP PO PRN (22:01)
[2016-05-07] MEDS: CLINDAMYCIN 600 MG/DEXTROSE 50 ML IV SCH (22:01)
[2016-05-08] MEDS: CLINDAMYCIN 600 MG/DEXTROSE 50 ML IV SCH ×3 (05:23→22:03)
[2016-05-08] MEDS: HEPARIN 5,000 UNIT/0.5 ML SYR SC SCH ×3 (05:36→22:03)
[2016-05-08] MEDS: HYDROCORTISONE 100 MG/2 ML VIAL IVP SCH (05:37)
[2016-05-08 05:43] LABS: HEMATOCRIT 29.8 % (40.0-51.0); HEMOGLOBIN 10.3 g/dL (13.7-17.5); MEAN CELL HEMOGLOBIN 30.7 pg (27.9-34.1); MEAN CELL HEMOGLOBIN CONCENTR. 34.6 g/dL (32.4-36.7); MEAN CELL VOLUME 88.7 fL (81.5-99.8); RED BLOOD CELL COUNT 3.36 10^6/uL (4.40-6.38); RED CELL DISTRIBUTION WIDTH 12.7 % (11.5-15.2)
[2016-05-08] MEDS: TAZOBACTAM IV SCH ×4 (05:53→23:44)
[2016-05-08] MEDS: PIPERACILLIN IV SCH ×4 (05:53→23:44)
[2016-05-08] MEDS: DEXTROSE IV SCH ×4 (05:53→23:44)
[2016-05-08 06:08] LABS: ANION GAP 9 mEq/L (8-16); CALCIUM 7.6 mg/dL (8.5-10.4); CARBON DIOXIDE 24 mEq/l (22-31); CHLORIDE 101 mEq/L (97-110); CREATININE 1.5 mg/dL (0.7-1.3); GLOMERULAR FILTRATION RATE 48; GLUCOSE 100 mg/dL (70-100); POTASSIUM 4.2 mEq/L (3.5-5.2); SODIUM 134 mEq/L (134-144)
[2016-05-08 06:19] LABS: TROPONIN I 0.087 ng/mL (0-0.034)
--- NOTE | 2016-05-08 08:27 | HOSPPROG ---
Hospitalist Progress Note Assessment/Plan: #Septic shock -due to Strep pyogenes perirectal abscess -POD #[address] Victor -cultures with gram + cocci. Cont Vanc/Zosyn -now off pressors #Strep pyogenes perirectal abscess -plan as stated above #Scrotal edema/blistering -pelvic CT shows progressive swelling, no gas. But still high concern for Josiah's given no improvement on 2 days abx. Urology consulted. #Leukocytosis -trending up today -scrotal U/S showed cellulitis, no abscess. -Blood cx NGTD #Acute hypoxic resp failure -mild edema. Sxs improved with Lasix -CXR personally reviewed by me shows right pleural effusion. #Pain -currently well-controlled on oxycodone #CAD -stent to LAD in 2009. [facility] Advisor in [place]. 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 Dosed IV lasix yesterday -Resume Coreg, statin, ASA and MARIE-I #VINI: improving. Due to hypotension #Anal fissure -POD #2 lateral sphincterotomy #Hypomagnesium -repleting #Diet: NPO #DVT ppx: SQH #Disp: warrants ICU admission: requiring IVFs, abx, further urologic evaluation Time spent on visit: 60 min in which 20 min spent bedside, 40 min coordinating with consultants: IV, urology and surgery Subjective: breathing improved today. Pain in rectum and scrotum improved. Objective: Vital Signs Temp Pulse Resp BP Pulse Ox 36.8 C 93 21 H 115/97 H 97 05/08/16 07:44 05/08/16 07:44 05/08/16 07:44 05/08/16 07:44 05/08/16 07:44 Microbiology 05/06/16 22:36 Gram Stain - Final Anus - Swab Laboratory Results 05/08/16 05:30 05/08/16 05:30 05/07/16 05/08/16 05/09/16 05:59 05:59 05:59 Intake Total 4903.1 3733 Output Total 800 4050 Balance 4103.1 -317 PT 20.5 SEC (12.0-15.0) H 05/07/16 05:10 INR 1.75 (0.83-1.16) H 05/07/16 05:10 - Physical Exam Constitutional: uncomfortable Eyes: PERRL Ears, Nose, Mouth, Throat: moist mucous membranes, hearing normal Cardiovascular: regular rate and rhythym, no murmur, rub, or gallop Respiratory: no respiratory distress, no rales or rhonchi Gastrointestinal: normoactive bowel sounds Genitourinary: nicholas in urethra, other (scrotum with signifiant swelling, erythema. Purple discoloration base of scrotum with blistering) Musculoskeletal: full muscle strength Neurologic: AAOx3 Psychiatric: interacting appropriately ICD10 Worksheet Patient Problems: Problems Problem Status Diagnosed Hypotension Acute Rectal abscess Acute Rectal cellulitis Acute Septic shock Acute Rectal pain Acute
--- NOTE | 2016-05-08 08:37 | DX ---
Portable AP Upright Chest May 08, 2016 6:00 a.m. Clinical History: 60-year-old male with septic shock and IV fluid resuscitation. Evaluate shortness o f breath. Comparison Study: Chest, dated May 06, 2016, at 11:28 p.m. Findings: Oxygen tubing is in place, as are telemetry monitoring lead lines. There is a right IJ cent ral venous catheter which terminates at the SVC-right atrial junction. The cardiac size is normal. Th ere is diffuse peribronchial thickening and the pulmonary vasculature is equalized. There has been de velopment of airspace disease laterally in the right mid-lower lung zones. This is a nonspecific find ing and could represent alveolar edema, pulmonary hemorrhage, infiltrate, and/or atelectasis. There i s no evidence of a pneumothorax. Impression: 1. Findings consistent with pulmonary venous hypertension and diffuse peribronchial thickening (query mild interstitial edema), slightly more pronounced than on May 06, 2016. 2. Interval development of airspace disease in the right lateral lower hemithorax.
[2016-05-08] MEDS ORDERED: NON-FORMULARY NEW DRUG (Simvastatin [Zocor] 20 MG) PO SCH (09:00)
[2016-05-08] MEDS ORDERED: ATORVASTATIN CALCIUM 10 MG TAB PO SCH (09:00)
--- NOTE | 2016-05-08 09:03 | PCMIDPN ---
Assessment/Plan: Assessment/Plan: 1. Bessie-rectal abscess s/p I & D: - CX with Group A strep - On vanco, zosyn. I added clinda last evening after preliminary cx showed Group A strep. - Likely polymicrobial involvement, with Strep, GNR, and anerobes, including possible clostridium. Less likely MRSA involvement. -Today: eccymosis at base of scrotum simliar to yesterday but new blister formation. more tender. Still concerned for risk of extension of infection and Josiah's -Recommend Urology consult to further evaluate, possible need for exploration. -Await further maturation of cultures. If no MRSA, plan to dc Vanco. Plan for short course Clinda for now. - Subjective: Afebrile. Remains in ICu. Less left testicular pain but still swollen. LEss chest pressure and shortness of breath today. muscles still sore all over.Denies kiah abd pain. having loose stools but taking stool softener. nicholas.more pain today in perineum, between buttocks fold, base of scrotum. Objective: Vital Signs Temp Pulse Resp BP Pulse Ox 36.8 C 93 21 H 115/97 H 97 05/08/16 07:44 05/08/16 07:44 05/08/16 07:44 05/08/16 07:44 05/08/16 07:44 Microbiology 05/06/16 22:36 Gram Stain - Final Anus - Swab Laboratory Results 05/08/16 05:30 05/08/16 05:30 05/07/16 05/08/16 05/09/16 05:59 05:59 05:59 Intake Total 4903.1 3733 Output Total 800 4050 Balance 4103.1 -317 - Physical Exam General Appearance: alert, no apparent distress EENT: No thrush Respiratory: lungs clear Cardiac/Chest: regular rate, rhythm Extremities: No swelling Abdomen: normal bowel sounds, non-tender, soft, No distended Male Genitalia: nicholas, scrotal edema Skin: erythema (in perineum and between buttocks fold, and left scrotum. eccymosis at base of scrotum with new blister formation. more tender there today. tender and indurated posteior to that and in the perianal area and buttocks fold. ) ICD10 Worksheet Patient Problems: Problems Problem Status Diagnosed Hypotension Acute Rectal abscess Acute Rectal cellulitis Acute Rectal pain Acute Septic shock Acute
--- NOTE | 2016-05-08 09:33 | SOAPPROG ---
SOAP Progress Note Assessment/Plan: Assessment: s/p lateral sphincterotomy for large posterior anal fissure by Dali s/p I&D of perirectal area with no return of pus, only mild induration and edema significant erythema and edema of scrotum Plan: also recommend urology consult to assess for Josiah's, prostatitis, etc. as I think the perineum and urogenital tract is a more likely source for his infection continue antibiotics per ID 05/08/16 09:30 Subjective: minimal perianal pain significant pain of scrutum/testicles (L>R) Objective: Vital Signs Temp Pulse Resp BP Pulse Ox 36.8 C 93 21 H 115/97 H 97 05/08/16 07:44 05/08/16 07:44 05/08/16 07:44 05/08/16 07:44 05/08/16 07:44 Microbiology 05/06/16 22:36 Gram Stain - Final Anus - Swab Laboratory Results 05/08/16 05:30 05/08/16 05:30 05/07/16 05/08/16 05/09/16 05:59 05:59 05:59 Intake Total 4903.1 3733 Output Total 800 4050 Balance 4103.1 -317 PT 20.5 SEC (12.0-15.0) H 05/07/16 05:10 INR 1.75 (0.83-1.16) H 05/07/16 05:10 Physical Exam - Physical Exam General Appearance: alert Male Genitalia: other (persistent erythema and edema of scrotum) Rectal: other (incisions healing well, erythema improved, induration resolved) ICD10 Worksheet Patient Problems: Problems Problem Status Diagnosed Hypotension Acute Rectal abscess Acute Rectal cellulitis Acute Rectal pain Acute Septic shock Acute
--- NOTE | 2016-05-08 10:24 | SOAPPROG ---
JELENA Progress Note Assessment/Plan: Assessment: 1. cad..lad stent 5 years ago ..stable without ACS symptoms..increase bnp probably from iv fluids(o>i overnight)...echo with normal lvef and no rwma..trop increase probably due to cri/arf and hypotension...b/p and hemodynamically stable now off pressors...can restart home meds (coreg, lisinopril, statins and asa) when pt taking po Plan:1. as ordered 05/08/16 10:19 Subjective: pt feeling better today..no cp ,sob...labs and echo reviewed...off inotropes... Objective: Vital Signs Temp Pulse Resp BP Pulse Ox 36.8 C 93 21 H 115/97 H 97 05/08/16 07:44 05/08/16 07:44 05/08/16 07:44 05/08/16 07:44 05/08/16 07:44 Microbiology 05/06/16 22:36 Gram Stain - Final Anus - Swab Laboratory Results 05/08/16 05:30 05/08/16 05:30 05/07/16 05/08/16 05/09/16 05:59 05:59 05:59 Intake Total 4903.1 3733 Output Total 800 4050 Balance 4103.1 -317 PT 20.5 SEC (12.0-15.0) H 05/07/16 05:10 INR 1.75 (0.83-1.16) H 05/07/16 05:10 Physical Exam - Physical Exam Respiratory: lungs clear Cardiac/Chest: regular rate, rhythm, No edema ICD10 Worksheet Patient Problems: Problems Problem Status Diagnosed Hypotension Acute Rectal abscess Acute Rectal cellulitis Acute Rectal pain Acute Septic shock Acute
[2016-05-08] MEDS: NS 1,000 ML IV SCH (11:45)
[2016-05-08] MEDS: VANCOMYCIN 1.5 GM in D5W 250 ML IV SCH (11:45)
[2016-05-08] MEDS ORDERED: PNEUMOCOCCAL 0.5ML VACCINE VIAL IM ONE (11:52)
--- NOTE | 2016-05-08 13:31 | CT ---
CT Pelvis, Unenhanced History: 60 year old with left testicular and scrotal pain with burning, evaluate for Josiah gangre ne. Comparison: CT pelvis May 06, 2016. Technique: Axial unenhanced images were obtained through the pelvis. Multiplanar reformations were pe rformed. Dose reduction techniques were utilized. The study was performed unenhanced due to elevated creatinine and solitary kidney. Findings: There is significant increase in diffuse soft tissue swelling in the scrotum and perineum, with no visible subcutaneous air. Although sensitivity is limited by lack of contrast, there is no di screte abscess. A [place] Fu[place] is present in the bladder, with air in the [place] La Fuente related to instrumentation. A small amount of ascites is new since the comparison. Mild anasarca is new since the comparison. The inferior pole of the right kidney has a lobulated contour anteriorly, poorly assessed due to incompl ete visualization of the kidney and the lack of contrast. Sigmoid diverticulosis is present without e vidence of diverticulitis. Moderate atherosclerosis is present. 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 Impressions 1. Increased extensive soft tissue swelling/inflammation of the scrotum and perineum, with no subcuta neous emphysema identified. The absence of subcutaneous air does not exclude the diagnosis of Fournie r gangrene. 2. New small volume of ascites. 3. Lobulated contour of the inferior right kidney, incompletely characterized. This could represent f etal lobulation, cyst, or mass. Additional imaging is recommended. Given the patient's elevated creat inine, ultrasound may be useful for further evaluation. If the patient's creatinine improves, CT with contrast could be performed. 4. Additional findings as above. Findings discussed with Lashanda, the patient's nurse, today (May 08, 2016), at 1318 hours. Finding s discussed with Yamileth Cook May 08, 2016 at 1325 hours.
--- NOTE | 2016-05-08 15:11 | PDINTPN ---
Group Insurance Specialist Progress Note Assessment/Plan: Assessment: #Sepsis due to perirectal abscess and ? Josiah's syndrome with increasing cellulitis. Hemodynamics are improved but with increasing leukocytosis. Post sphincterotomy and then I/D #VINI improved with creatinine from 2.2 to 1.5 #Remote kidney donation #CAD with a stent 5y/a #New right lung peripheral infiltrate, ? loculated effusion, R/O empyema Plan: On Vanco, Zosyn, clindamycin Repeat CXR tomorrow, may need CT and thoracentesis Urology consult Pelvic CT Proph: heparin 05/08/16 15:11 Subjective: His pain is less and he feels better than yesterday Objective: Vital Signs Temp Pulse Resp BP Pulse Ox 36.8 C 85 16 106/91 H 99 05/08/16 07:44 05/08/16 11:53 05/08/16 11:53 05/08/16 11:53 05/08/16 11:53 Microbiology 05/06/16 22:36 Gram Stain - Final Anus - Swab Laboratory Results 05/08/16 05:30 05/08/16 05:30 05/07/16 05/08/16 05/09/16 05:59 05:59 05:59 Intake Total 4903.1 3733 Output Total 800 4050 Balance 4103.1 -317 PT 20.5 SEC (12.0-15.0) H 05/07/16 05:10 INR 1.75 (0.83-1.16) H 05/07/16 05:10 Physical Exam - Physical Exam General Appearance: alert, no apparent distress EENT: normal ENT inspection Neck: non-tender Respiratory: lungs clear Cardiac/Chest: regular rate, rhythm Abdomen: non-tender, soft Male Genitalia: other (cellulitis) Back: Normal inspection Skin: warm/dry Lymphatic: no adenopathy Extremities: non-tender, No pedal edema Neuro/Psych: alert, oriented x 3 ICD10 Worksheet Patient Problems: Problems Problem Status Diagnosed Hypotension Acute Rectal abscess Acute Rectal cellulitis Acute Septic shock Acute Rectal pain Acute
[2016-05-08] MEDS ORDERED: PNEUMOCOCCAL 0.5ML VACCINE VIAL ONE (15:41)
--- NOTE | 2016-05-08 16:12 | GCON ---
[f rep st] CONSULTATION DATE OF CONSULTATION: 05/08/2016 REASON FOR CONSULT: Scrotal swelling/scrotal pain. HISTORY OF PRESENT ILLNESS: This is a pleasant, 60-year-old man, who originally came into the emerge ncy room on May 05 with rectal pain and, upon examination, it was determined that he was at [facility] for a perirectal abscess. He underwent a lateral internal sphincterotomy by Dr. Mcnally for wha t was determined to then be a large anal fissure. The patient was discharged home, but re-presented to the emergency room the next day with sepsis, and was admitted and underwent another procedure by Juan Antonio Victor for an I and D of left perirectal abscess, who did find an abscess that she described as de ep with minimal purulent drainage. Since then, the patient has continued to have an elevating white blood cell count despite treatment by Infectious Disease for strep pyogenes with Zosyn, vancomycin, a nd recently added clindamycin. We were asked to consult to see the patient for evaluation of possibl e scrotal infection. We ordered a CT scan of the pelvis, which Dr. Izquierdo, Dr. Bradley, and I have all reviewed, as well as discussed together, that shows no air in the scrotum. Upon examination tod ay, the patient is complaining of more left-sided testicular discomfort than right, as well as swelli ng. Additionally, he has a very small area of bruising in the perineum with 1 blister. PAST MEDICAL HISTORY: Significant for donation of kidney and coronary artery disease. PAST SURGICAL HISTORY: He had a stent to the LAD. ALLERGIES: No known drug allergies. SOCIAL HISTORY: Previous heavy smoker, none for 3 months. No significant alcohol use. Lives in [place], in [place] visiting his son. PHYSICAL EXAMINATION: VITAL SIGNS: Blood pressure 106/91, heart rate 85, respirations 16, O2 satura tion 99% on 2 L/minute. Last temperature was 36.8. GENERAL: Well-nourished, well-developed man in no acute distress. HEENT: Normocephalic, atraumatic. Extraocular movements intact. NECK: Normal inspection. RESPIRATORY: No accessory respiratory muscle use. CARDIAC: Regular rate and rhythm. No lower extremity edema. No obvious JVD. GI: Abdomen was scaphoid. : No suprapubic tenderness . Scrotum was swollen, but soft and fluctuant, without crepitus on exam. The patient did have diffu se testicular tenderness. Small area of bruising in the perineum with 1 blister. No exquisite tende rness to perineum on exam. INTEGUMENT: No obvious rashes or lesions beyond those mentioned. MUSCUL OSKELETAL: The patient was supine, but able to move all 4 extremities without difficulty. NEUROLOGI C: The patient was alert and oriented. Affect appropriate to situation. DATA: White blood cell count 19.42, hematocrit 29.8, hemoglobin 10.3, platelets 122. Chemistry: Sodium 134, potassium 4.2, chloride 101, carbon dioxide 24, anion gap 9, BUN 25, creatini ne 1.5, glucose 100, calcium 7.6, magnesium 2.0. Microbiology: As mentioned before, the patient's preliminary wound culture (does not say where the w ound culture was taken) positive for strep pyogenes. Blood culture negative after 36 hours. CAT scan: As mentioned, the CAT scan was personally reviewed by me and Dr. Izquierdo, as well as kirsten blake discussed with Dr. Bradley, and does show increased extensive soft tissue swelling of the scro maya and perineum with no subcutaneous emphysema. Dr. Bradley does note lobulated contour of the i nferior right kidney and recommends repeat CT with contrast in the future. ASSESSMENT/PLAN: Scrotal swelling/scrotal pain: At this point, do not suspect, based on radiology a nd clinical exam, that the patient has a scrotal infection. Recommend that patient keep scrotum prop ped on abdomen, which may be assisted with the use of a small towel as discussed with nurse, as this was not being done, to help decrease the amount of swelling in his scrotum. I have discussed the garo e with Dr. Victor of General Surgery, and I do have a call to Infectious Disease as well. At this po int, we will continue to follow along with the patient's care, and we will be happy to reassess if ne eded. /[id number]/MODL
[2016-05-08] MEDS: ACETAMINOPHEN 325 MG TAB PO PRN (20:19)
[2016-05-08] MEDS: ONDANSETRON DISINTEGRATING 4 MG TAB PO PRN (22:03)
[2016-05-08] MEDS: TEMAZEPAM 15 MG CAP PO PRN (22:04)
[2016-05-08] MEDS: oxyCODONE IR 5 MG TAB PO PRN (22:04)
[2016-05-09] MEDS: CLINDAMYCIN 600 MG/DEXTROSE 50 ML IV SCH ×3 (05:32→22:10)
[2016-05-09] MEDS: HEPARIN 5,000 UNIT/0.5 ML SYR SC SCH ×3 (05:44→22:10)
[2016-05-09 05:53] LABS: HEMATOCRIT 28.3 % (40.0-51.0); HEMOGLOBIN 9.9 g/dL (13.7-17.5); MEAN CELL HEMOGLOBIN 31.1 pg (27.9-34.1); RED BLOOD CELL COUNT 3.18 10^6/uL (4.40-6.38); RED CELL DISTRIBUTION WIDTH 12.8 % (11.5-15.2)
[2016-05-09 06:20] LABS: ANION GAP 7 mEq/L (8-16); CALCIUM 7.6 mg/dL (8.5-10.4); CARBON DIOXIDE 26 mEq/l (22-31); CHLORIDE 105 mEq/L (97-110); CREATININE 1.2 mg/dL (0.7-1.3); GLOMERULAR FILTRATION RATE > 60; GLUCOSE 83 mg/dL (70-100); POTASSIUM 3.8 mEq/L (3.5-5.2); SODIUM 138 mEq/L (134-144)
[2016-05-09 06:21] LABS: MAGNESIUM 2.2 mg/dL (1.6-2.3)
[2016-05-09] MEDS: TAZOBACTAM IV SCH ×3 (06:38→17:37)
[2016-05-09] MEDS: DEXTROSE IV SCH ×3 (06:38→17:37)
[2016-05-09] MEDS: PIPERACILLIN IV SCH ×3 (06:38→17:37)
--- NOTE | 2016-05-09 07:32 | SOAPPROG ---
SOAP Progress Note Assessment/Plan: Assessment: Scrotal edema Acute subjectively improved by pt assessment Left Epididymitis Acute Left testis tender and plan for sonogram in AM Plan: continue supportive care, AM sonogram of testis to assess for epididymal abscess. 05/09/16 08:08 Subjective: improved on scrotal issue, left testis is tender Objective: Vital Signs Temp Pulse Resp BP Pulse Ox 36.6 C 90 14 112/64 99 05/09/16 05:51 05/09/16 05:51 05/09/16 04:00 05/09/16 04:00 05/09/16 04:00 Microbiology 05/06/16 22:36 Gram Stain - Final Anus - Swab Laboratory Results 05/09/16 05:40 05/09/16 05:40 05/08/16 05/09/16 05/10/16 05:59 05:59 05:59 Intake Total 3733 1180 Output Total 4050 1500 Balance -317 -320 PT 20.5 SEC (12.0-15.0) H 05/07/16 05:10 INR 1.75 (0.83-1.16) H 05/07/16 05:10 Physical Exam - Physical Exam General Appearance: alert Neck: supple Respiratory: No respiratory distress Cardiac/Chest: regular rate, rhythm Abdomen: soft Male Genitalia: other (scrotal edema, no crepitus, rt testis normal, left testis tender and suggestive of epididymitis, genital edema noted and per pt gradually improving) Back: No CVA tenderness Extremities: non-tender, No calf tenderness, No Sheri's sign Neuro/Psych: oriented x 3 ICD10 Worksheet Patient Problems: Problems Problem Status Diagnosed Hypotension Acute Rectal abscess Acute Rectal cellulitis Acute Scrotal edema Acute Septic shock Acute Rectal pain Acute - ICD10 Problem Qualifiers (1) Scrotal edema
--- NOTE | 2016-05-09 08:14 | DX ---
AP Chest May 09, 2016 Clinical Indication: Sepsis. Comparison: May 08, 2016. Findings: The tip of the central line at the SVC right atrial junction is unchanged. Heart size is up per limits of normal. An area of consolidation in the right mid and lower lung has improved significa ntly. Pulmonary venous hypertension still persists with enlargement of the dylan. There is mild blunti ng of the right costophrenic angle. Mild pulmonary vascular indistinctness persists. Impression: 1. Overall improved aeration compared to the May 08 study one day prior. Persistent interstiti al edema is present. 2. Central line in stable position.
[2016-05-09] MEDS: NS 1,000 ML IV SCH (09:10)
--- NOTE | 2016-05-09 09:38 | SOAPPROG ---
JELENA Progress Note Assessment/Plan: Assessment: 1. cad..lad stent 5 years ago ..stable without ACS symptoms..increase bnp probably from iv fluids(o>i overnight)...echo with normal lvef and no rwma..trop increase probably due to cri/arf and hypotension...b/p and hemodynamically stable now off pressors...can restart home meds.. Plan:1. as ordered 05/08/16 10:19 05/09/16 09:37 Subjective: pt feeling better today ..no cv issues Objective: Vital Signs Temp Pulse Resp BP Pulse Ox 36.7 C 80 18 123/68 H 98 05/09/16 07:32 05/09/16 07:32 05/09/16 07:32 05/09/16 07:32 05/09/16 07:32 Microbiology 05/06/16 22:36 Gram Stain - Final Anus - Swab Laboratory Results 05/09/16 05:40 05/09/16 05:40 05/08/16 05/09/16 05/10/16 05:59 05:59 05:59 Intake Total 3733 1180 Output Total 4050 1500 Balance -317 -320 PT 20.5 SEC (12.0-15.0) H 05/07/16 05:10 INR 1.75 (0.83-1.16) H 05/07/16 05:10 Physical Exam - Physical Exam Respiratory: lungs clear, No rhonchi Cardiac/Chest: normal peripheral pulses, regular rate, rhythm, No edema ICD10 Worksheet Patient Problems: Problems Problem Status Diagnosed Hypotension Acute Rectal abscess Acute Rectal cellulitis Acute Scrotal edema Acute Septic shock Acute Rectal pain Acute
[2016-05-09] MEDS ORDERED: LISINOPRIL 2.5 MG TAB PO SCH (10:00)
[2016-05-09] MEDS: VANCOMYCIN 1.5 GM in D5W 250 ML IV SCH (10:21)
[2016-05-09] MEDS: ATORVASTATIN CALCIUM 10 MG TAB PO SCH (10:21)
[2016-05-09] MEDS: oxyCODONE IR 5 MG TAB PO PRN ×3 (12:40→22:17)
[2016-05-09] MEDS ORDERED: POLYETHYLENE GLYCOL 3350 17 GM PKT PO PRN (13:34)
[2016-05-09] MEDS ORDERED: MAGNESIUM HYDROXIDE 30 ML UDCUP PO PRN (13:34)
[2016-05-09] MEDS ORDERED: BISACODYL 10 MG SUPP PR PRN (13:34)
[2016-05-09] MEDS ORDERED: LACTULOSE 20 GM/30 ML UDCUP PO PRN (13:34)
--- NOTE | 2016-05-09 14:16 | PDINTPN ---
Designer Progress Note Assessment/Plan: Assessment: #Sepsis due to perirectal abscess and ? Josiah's syndrome with increasing cellulitis until today when it appears slightly better. Hemodynamics are improved but with increasing leukocytosis. Post sphincterotomy and then I/D #VINI improved with creatinine from 2.2 to 1.2 #Remote kidney donation #CAD with a stent 5y/a #New right lung peripheral infiltrate, resolved on today's CXR. Must have been a mucus plug Plan: On Vanco, Zosyn, clindamycin Pelvic CT done Proph: heparin US of testis tomorrow 05/09/16 14:16 Subjective: Less discomfort Objective: Vital Signs Temp Pulse Resp BP Pulse Ox 37.2 C 83 16 123/71 H 98 05/09/16 11:56 05/09/16 11:56 05/09/16 11:56 05/09/16 11:56 05/09/16 07:32 Microbiology 05/06/16 22:36 Gram Stain - Final Anus - Swab Laboratory Results 05/09/16 05:40 05/09/16 05:40 05/08/16 05/09/16 05/10/16 05:59 05:59 05:59 Intake Total 3733 1180 Output Total 4050 1500 Balance -317 -320 PT 20.5 SEC (12.0-15.0) H 05/07/16 05:10 INR 1.75 (0.83-1.16) H 05/07/16 05:10 Physical Exam - Physical Exam General Appearance: alert, no apparent distress EENT: normal ENT inspection Neck: non-tender Respiratory: lungs clear Cardiac/Chest: regular rate, rhythm Abdomen: non-tender, soft Back: Normal inspection Skin: warm/dry Lymphatic: no adenopathy Extremities: non-tender, No pedal edema Neuro/Psych: alert ICD10 Worksheet Patient Problems: Problems Problem Status Diagnosed Hypotension Acute Rectal abscess Acute Rectal cellulitis Acute Scrotal edema Acute Septic shock Acute Rectal pain Acute
--- NOTE | 2016-05-09 15:19 | HOSPPROG ---
Hospitalist Progress Note Assessment/Plan: #Septic shock: resolved -due to Strep pyogenes perirectal abscess -POD #[address] Victor -Strep pyogens. Cont Vanc/Zosyn -now off pressors #Strep pyogenes perirectal abscess -cont IV abx #Scrotal cellulitis -pelvic CT shows progressive swelling, no gas. Improving. Urology consulted. U/ S to eval for epidydymal abscess #Leukocytosis -improving -scrotal U/S showed cellulitis, no abscess. -Blood cx NGTD #Acute hypoxic resp failure -mild edema. Sxs improved with Lasix -CXR personally reviewed by me shows right pleural effusion. #Pain -currently well-controlled on oxycodone #CAD -stent to LAD in 2009. [employer] [employer] in [place]. 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 Dosed IV lasix yesterday -Resume Coreg, statin, ASA and MARIE-I #VINI: resolved #Anal fissure -s/p lateral sphincterotomy #Hypomagnesium -repleting #Diet: regular #Deconditioning: PT, #DVT ppx: SQH #Disp: warrants ICU admission: requiring IVFs, abx, further urologic evaluation Subjective: pain in scrotum improved Objective: Vital Signs Temp Pulse Resp BP Pulse Ox 37.2 C 83 16 123/71 H 98 05/09/16 11:56 05/09/16 11:56 05/09/16 11:56 05/09/16 11:56 05/09/16 07:32 Microbiology 05/06/16 22:36 Gram Stain - Final Anus - Swab Laboratory Results 05/09/16 05:40 05/09/16 05:40 05/08/16 05/09/16 05/10/16 05:59 05:59 05:59 Intake Total 3733 1180 Output Total 4050 1500 Balance -317 -320 PT 20.5 SEC (12.0-15.0) H 05/07/16 05:10 INR 1.75 (0.83-1.16) H 05/07/16 05:10 - Physical Exam Constitutional: no apparent distress Eyes: PERRL Ears, Nose, Mouth, Throat: moist mucous membranes Cardiovascular: regular rate and rhythym, no murmur, rub, or gallop Respiratory: no respiratory distress Gastrointestinal: normoactive bowel sounds, soft, non-tender abdomen Genitourinary: other (peristent left scrotal>right swelling. Erythema, purple discoloration at base. Less TTP) Skin: warm Musculoskeletal: full muscle strength Neurologic: AAOx3 Psychiatric: interacting appropriately ICD10 Worksheet Patient Problems: Problems Problem Status Diagnosed Hypotension Acute Rectal abscess Acute Rectal cellulitis Acute Scrotal edema Acute Septic shock Acute Rectal pain Acute
--- NOTE | 2016-05-09 16:18 | PCMIDPN ---
Assessment/Plan: Assessment: Perirectal abscess and perineal cellulitis. Group a strep in culture. On vancomycin, Zosyn and clindamycin. Clinically the patient has affected area appears to be somewhat better. Continues to have bright erythema that blanches in the perineum just posterior to the scrotum. No blistering of the perineum although the inferior scrotum has a single blistered area. Will continue the vancomycin, Zosyn and clindamycin. Unclear if any further surgical intervention will be necessary. The patient's general appearance is nontoxic. Plan: 1. Continue both vancomycin, Zosyn and clindamycin. 2. Follow culture results and clinical course. Subjective: Patient is resting comfortably in his hospital bed. He states he feels much more healthy today than he did over the last 2 days. He feels extremely tired however. No fevers or chills. Objective: Vancomycin # 3 Zosyn # 3 Clindamycin # 3 Vital Signs Temp Pulse Resp BP Pulse Ox 37.1 C 87 13 122/69 H 96 05/09/16 16:00 05/09/16 16:00 05/09/16 16:00 05/09/16 16:00 05/09/16 16:00 Microbiology 05/06/16 22:36 Gram Stain - Final Anus - Swab Laboratory Results 05/09/16 05:40 05/09/16 05:40 05/08/16 05/09/16 05/10/16 05:59 05:59 05:59 Intake Total 3733 1180 Output Total 4050 1500 Balance -317 -320 - Physical Exam General Appearance: WD/WN, alert, no apparent distress, non-toxic Respiratory: lungs clear, normal breath sounds, No respiratory distress Cardiac/Chest: regular rate, rhythm, No tachycardia Male Genitalia: normal genitalia, erythema, scrotal edema (Mild to moderate), other (Slide perineal induration with erythema.), No inguinal tenderness Skin: normal color, warm/dry, No rash Neuro/Psych: alert, normal mood/affect, oriented x 3 ICD10 Worksheet Patient Problems: Problems Problem Status Diagnosed Hypotension Acute Rectal abscess Acute Rectal cellulitis Acute Scrotal edema Acute Septic shock Acute Rectal pain Acute
[2016-05-09] MEDS: SENNOSIDES/DOCUSATE SODIUM TAB PO SCH (20:37)
[2016-05-09] MEDS: TEMAZEPAM 15 MG CAP PO PRN (22:17)
[2016-05-10] MEDS: PIPERACILLIN IV SCH ×4 (01:00→18:00)
[2016-05-10] MEDS: DEXTROSE IV SCH ×4 (01:00→18:00)
[2016-05-10] MEDS: TAZOBACTAM IV SCH ×4 (01:00→18:00)
[2016-05-10] MEDS: HEPARIN 5,000 UNIT/0.5 ML SYR SC SCH ×3 (05:05→23:03)
[2016-05-10 05:29] LABS: HEMATOCRIT 27.5 % (40.0-51.0); HEMOGLOBIN 9.3 g/dL (13.7-17.5); MEAN CELL HEMOGLOBIN 30.4 pg (27.9-34.1); MEAN CELL HEMOGLOBIN CONCENTR. 33.8 g/dL (32.4-36.7); MEAN CELL VOLUME 89.9 fL (81.5-99.8); RED BLOOD CELL COUNT 3.06 10^6/uL (4.40-6.38)
[2016-05-10 05:59] LABS: ANION GAP 6 mEq/L (8-16); CALCIUM 7.6 mg/dL (8.5-10.4); CARBON DIOXIDE 25 mEq/l (22-31); CHLORIDE 102 mEq/L (97-110); CREATININE 1.2 mg/dL (0.7-1.3); GLOMERULAR FILTRATION RATE > 60; GLUCOSE 76 mg/dL (70-100); POTASSIUM 3.5 mEq/L (3.5-5.2); SODIUM 133 mEq/L (134-144)
[2016-05-10] MEDS: CLINDAMYCIN 600 MG/DEXTROSE 50 ML IV SCH ×3 (06:19→23:03)
[2016-05-10] MEDS: NS 1,000 ML IV SCH (06:19)
--- NOTE | 2016-05-10 08:29 | US ---
Testicular Sonogram May 10, 2016 0518 hours Clinical Indications: Follow up perirectal abscess. Comparison: May 07, 2016. Technique: Scrotal contents were imaged with the high-resolution transducer. Color and pulsed Doppl er were recorded on each side. Findings: The scrotal soft tissues remain mildly thickened but improved compared to 3 days prior. The right testicle measures 3.4 x 2.4 x 4.6 cm. There is normal flow with a normal resistive index of 0.69. The epididymis is unremarkable with normal flow. Left testicle measures 3.3 x 2.5 x 5.1 cm. There is normal flow. Resistive index is normal at 0.64. T he epididymis is normal. Impression: No evidence of recurrent abscess. Persistently thickened scrotal sac. This is mildly impr brittni compared to 3 days prior.
[2016-05-10] MEDS: LISINOPRIL 5 MG TAB PO SCH (08:36)
[2016-05-10] MEDS: SENNOSIDES/DOCUSATE SODIUM TAB PO SCH ×2 (08:37→19:58)
[2016-05-10] MEDS: oxyCODONE IR 5 MG TAB PO PRN ×5 (08:37→23:02)
[2016-05-10] MEDS: CARVEDILOL 25 MG TAB PO SCH (08:37)
[2016-05-10] MEDS: ATORVASTATIN CALCIUM 10 MG TAB PO SCH (08:38)
--- NOTE | 2016-05-10 09:07 | PCMIDPN ---
Assessment/Plan: # GAS scrotal, penile, perineal-perirectal cellulitis/abscess. Scrotal Ultrasound today shows no evolution of abscess. Patient examined with Dr. Curiel and, in general, erythema is less and slightly receded in the suprapubic and inguinal regions. Perirectal area is stable with a persistent bulla at the 7 o'clock position. Overall clinical improvement. Recommendations --DC vancomycin --Continue dual therapy with standard dose Zosyn (as suspect could have some polymicrobial component due to location) and clindamycin (for [place] affect) Medications Zosyn 3.375 IV Q 6, #3 Clindamycin 600 mg IV Q 8, #3 Microbiology 05/06 blood cultures 2 sets negative 05/06 perirectal abscess: Group a strep Subjective: Patient reports less scrotal pain. Was up into chair for 2 hours yesterday. Increased appetite today denies side effects to antibiotics Borders of erythema were marked today with sharpie Objective: Vital Signs Temp Pulse Resp BP Pulse Ox 36.4 C 83 18 129/78 H 100 05/10/16 08:14 05/10/16 08:14 05/10/16 08:14 05/10/16 08:14 05/10/16 08:14 Microbiology 05/06/16 22:36 Gram Stain - Final Anus - Swab Wound Culture - Final Streptococcus Pyogenes Grp A Laboratory Results 05/10/16 05:15 05/10/16 05:15 05/09/16 05/10/16 05/11/16 05:59 05:59 05:59 Intake Total 1180 5778 Output Total 1500 2500 Balance -320 3278 - Physical Exam General Appearance: alert, no apparent distress EENT: No scleral icterus, No thrush Respiratory: lungs clear Neck: supple Cardiac/Chest: regular rate, rhythm, No systolic murmur Extremities: No pedal edema Abdomen: non-tender, soft Male Genitalia: erythema (Scrotal erythema tracking up to suprapubic region with erythema also tracking to right greater than left side.), testicular tenderness Rectal: perirectal area (Erythema with some dark areas with a bulla at the 7 o' clock position towards the perineal area) Skin: warm/dry, No diaphoresis, No rash Neuro/Psych: alert, normal mood/affect, oriented x 3 - Time Spent With Patient Time Spent with Patient: greater than 35 minutes (Care coordination with Dr. Curiel) Time Spent with Patient: Greater than 35 minutes spent on this patients care, greater than 50% of time spent counseling, educating, and coordinating care regarding the above mentioned plan. ICD10 Worksheet Patient Problems: Problems Problem Status Diagnosed Hypotension Acute Rectal abscess Acute Rectal cellulitis Acute Scrotal edema Acute Septic shock Acute Rectal pain Acute
--- NOTE | 2016-05-10 10:21 | SOAPPROG ---
SOAP Progress Note Assessment/Plan: Assessment: 1. cad..lad stent 5 years ago ..stable without ACS symptoms..increase bnp probably from iv fluids(o>i overnight)...echo with normal lvef and no rwma..trop increase probably due to cri/arf and hypotension...b/p and hemodynamically stable now off pressors...tolerating home meds..up add jane Plan:1. will sign off unless issus arise..d/w dr brady 05/08/16 10:19 05/09/16 09:37 05/10/16 10:19 Subjective: pt doing better..no cv issues Objective: Vital Signs Temp Pulse Resp BP Pulse Ox 36.4 C 83 18 129/78 H 100 05/10/16 08:14 05/10/16 08:14 05/10/16 08:14 05/10/16 08:14 05/10/16 08:14 Microbiology 05/06/16 22:36 Gram Stain - Final Anus - Swab Wound Culture - Final Streptococcus Pyogenes Grp A Laboratory Results 05/10/16 05:15 05/10/16 05:15 05/09/16 05/10/16 05/11/16 05:59 05:59 05:59 Intake Total 1180 5778 Output Total 1500 2500 Balance -320 3278 PT 20.5 SEC (12.0-15.0) H 05/07/16 05:10 INR 1.75 (0.83-1.16) H 05/07/16 05:10 Physical Exam - Physical Exam Respiratory: lungs clear Cardiac/Chest: normal peripheral pulses, regular rate, rhythm, No edema ICD10 Worksheet Patient Problems: Problems Problem Status Diagnosed Hypotension Acute Rectal abscess Acute Rectal cellulitis Acute Scrotal edema Acute Septic shock Acute Rectal pain Acute
--- NOTE | 2016-05-10 10:37 | HOSPPROG ---
Hospitalist Progress Note Assessment/Plan: #Septic shock: resolved -due to Strep pyogenes scrotal cellulitis -Stop Vanc today, Cotn Zosyn and Clinda #Strep pyogenes perirectal abscess -narrow to Zosyn, Clinda #Scrotal cellulitis -improved. US with no abscess. 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 Dosed IV lasix yesterday -Resume Coreg, statin, ASA and MARIE-I #VINI: resolved #Anal fissure -s/p lateral sphincterotomy #Hypomagnesium -repleting #Diet: regular #Deconditioning: PT, #DVT ppx: SQH #Disp: warrants ICU admission: requiring IVFs, abx, further urologic evaluation Subjective: scrotal pain and swelling less Objective: Vital Signs Temp Pulse Resp BP Pulse Ox 36.4 C 83 18 129/78 H 100 05/10/16 08:14 05/10/16 08:14 05/10/16 08:14 05/10/16 08:14 05/10/16 08:14 Microbiology 05/06/16 22:36 Gram Stain - Final Anus - Swab Wound Culture - Final Streptococcus Pyogenes Grp A Laboratory Results 05/10/16 05:15 05/10/16 05:15 05/09/16 05/10/16 05/11/16 05:59 05:59 05:59 Intake Total 1180 5778 Output Total 1500 2500 Balance -320 3278 PT 20.5 SEC (12.0-15.0) H 05/07/16 05:10 INR 1.75 (0.83-1.16) H 05/07/16 05:10 - Physical Exam Constitutional: no apparent distress Eyes: PERRL Ears, Nose, Mouth, Throat: moist mucous membranes, other (Right IJ in place) Cardiovascular: regular rate and rhythym, no murmur, rub, or gallop Respiratory: no respiratory distress, no rales or rhonchi Gastrointestinal: normoactive bowel sounds, soft, non-tender abdomen Genitourinary: other (scrotal swelling decreased. Erythema in pubic region marked. Blister at base of scrotum now open) Skin: warm Musculoskeletal: full muscle strength Neurologic: AAOx3 Psychiatric: interacting appropriately ICD10 Worksheet Patient Problems: Problems Problem Status Diagnosed Hypotension Acute Rectal abscess Acute Rectal cellulitis Acute Scrotal edema Acute Septic shock Acute Rectal pain Acute
--- NOTE | 2016-05-10 14:58 | PDINTPN ---
Net Making Supervisor Progress Note Assessment/Plan: Assessment: #Sepsis due to perirectal abscess and ? Josiah's syndrome with increasing cellulitis but it appears slightly better. Hemodynamics are improved but with leukocytosis. Post sphincterotomy and then I/D #VINI improved with creatinine from 2.2 to 1.2 #Remote kidney donation #CAD with a stent 5y/a #New right lung peripheral infiltrate, resolved on CXR. Must have been a mucus plug Plan: On Zosyn, clindamycin Pelvic CT done Proph: heparin US of testis tomorrow 05/10/16 14:58 Subjective: Increased scrotal pain with edema when up in a chair Objective: Vital Signs Temp Pulse Resp BP Pulse Ox 36.8 C 67 18 135/74 H 91 L 05/10/16 11:27 05/10/16 11:27 05/10/16 11:27 05/10/16 11:27 05/10/16 11:27 Microbiology 05/06/16 22:36 Gram Stain - Final Anus - Swab Wound Culture - Final Streptococcus Pyogenes Grp A Laboratory Results 05/10/16 05:15 05/10/16 05:15 05/09/16 05/10/16 05/11/16 05:59 05:59 05:59 Intake Total 1180 5778 2300 Output Total 1500 2500 1400 Balance -320 3278 900 PT 20.5 SEC (12.0-15.0) H 05/07/16 05:10 INR 1.75 (0.83-1.16) H 05/07/16 05:10 Physical Exam - Physical Exam General Appearance: alert EENT: normal ENT inspection Neck: non-tender Respiratory: lungs clear Cardiac/Chest: regular rate, rhythm Abdomen: non-tender, soft Back: Normal inspection Skin: warm/dry Lymphatic: no adenopathy Extremities: non-tender, No pedal edema Neuro/Psych: alert ICD10 Worksheet Patient Problems: Problems Problem Status Diagnosed Hypotension Acute Rectal abscess Acute Rectal cellulitis Acute Scrotal edema Acute Septic shock Acute Rectal pain Acute
[2016-05-10] MEDS ORDERED: CALCIUM CARBONATE 500 MG CHEWABLE TAB PO ONE (16:14)
--- NOTE | 2016-05-10 16:38 | SOAPPROG ---
SOAP Progress Note Assessment/Plan: Assessment: Scrotal edema Acute subjectively improved by pt assessment Left Epididymitis Acute Left testis less tender and no abscess by scrotal sonogram this AM Plan: continue present care, will sign off and will be available if additional services needed. 05/10/16 16:35 Subjective: much better and less swelling and less pain of the scrotum and testicle Objective: Vital Signs Temp Pulse Resp BP Pulse Ox 36.8 C 85 16 136/74 H 91 L 05/10/16 11:27 05/10/16 16:05 05/10/16 16:05 05/10/16 16:05 05/10/16 16:05 Microbiology 05/06/16 22:36 Gram Stain - Final Anus - Swab Wound Culture - Final Streptococcus Pyogenes Grp A Laboratory Results 05/10/16 05:15 05/10/16 05:15 05/09/16 05/10/16 05/11/16 05:59 05:59 05:59 Intake Total 1180 5778 2300 Output Total 1500 2500 1400 Balance -320 3278 900 PT 20.5 SEC (12.0-15.0) H 05/07/16 05:10 INR 1.75 (0.83-1.16) H 05/07/16 05:10 Physical Exam - Physical Exam General Appearance: alert Neck: supple Respiratory: No respiratory distress Cardiac/Chest: regular rate, rhythm Abdomen: soft Male Genitalia: other (penile swelling less, cath in place, scrotum swelling, no crepitus or suggestion of cellulitis, left testis less tender) Back: No CVA tenderness Skin: warm/dry Lymphatic: No axilla node tender (L) Extremities: non-tender, No calf tenderness, No Sheri's sign Neuro/Psych: alert, oriented x 3 ICD10 Worksheet Patient Problems: Problems Problem Status Diagnosed Hypotension Acute Rectal abscess Acute Rectal cellulitis Acute Scrotal edema Acute Septic shock Acute Rectal pain Acute - ICD10 Problem Qualifiers (1) Scrotal edema
[2016-05-10] MEDS: TEMAZEPAM 15 MG CAP PO PRN (23:02)
[2016-05-11] MEDS: PIPERACILLIN IV SCH ×5 (00:18→23:32)
[2016-05-11] MEDS: TAZOBACTAM IV SCH ×5 (00:18→23:32)
[2016-05-11] MEDS: DEXTROSE IV SCH ×5 (00:18→23:32)
[2016-05-11] MEDS: HYDROCORTISONE 0.5% CREAM TP PRN (00:19)
[2016-05-11] MEDS: CALCIUM CARBONATE 500 MG CHEWABLE TAB PO PRN ×3 (00:19→15:32)
[2016-05-11] MEDS: oxyCODONE IR 5 MG TAB PO PRN ×6 (04:00→23:32)
[2016-05-11] MEDS: CLINDAMYCIN 600 MG/DEXTROSE 50 ML IV SCH ×3 (05:45→21:11)
[2016-05-11] MEDS: HEPARIN 5,000 UNIT/0.5 ML SYR SC SCH ×3 (05:50→21:11)
[2016-05-11 06:15] LABS: MEAN CELL HEMOGLOBIN 31.1 pg (27.9-34.1); MEAN CELL HEMOGLOBIN CONCENTR. 35.7 g/dL (32.4-36.7); RED BLOOD CELL COUNT 3.22 10^6/uL (4.40-6.38)
[2016-05-11 06:45] LABS: ANION GAP 8 mEq/L (8-16); CARBON DIOXIDE 27 mEq/l (22-31); CHLORIDE 102 mEq/L (97-110); CREATININE 1.2 mg/dL (0.7-1.3); GLOMERULAR FILTRATION RATE > 60; GLUCOSE 84 mg/dL (70-100); POTASSIUM 3.5 mEq/L (3.5-5.2); SODIUM 137 mEq/L (134-144)
--- NOTE | 2016-05-11 08:29 | HOSPPROG ---
Hospitalist Progress Note Assessment/Plan: #Septic shock: resolved -due to Strep pyogenes scrotal cellulitis -Zosyn/Clinda. Suspect long-term abx. Place PICC #Strep pyogenes perirectal abscess -Zosyn, Clinda #Scrotal cellulitis -improved. US with no abscess. 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 Dosed IV lasix yesterday -Resume Coreg, statin, ASA and MARIE-I #VINI: resolved #Anal fissure -s/p lateral sphincterotomy #Hypomagnesium -repleting #Diet: regular #Deconditioning: PT, getting out of bed #DVT ppx: SQH #Disp: transfer to med-surg Subjective: pain improved. CVC IJ bleeding this morn Objective: Vital Signs Temp Pulse Resp BP Pulse Ox 36.8 C 79 16 143/87 H 92 05/11/16 07:51 05/11/16 07:51 05/11/16 07:51 05/11/16 07:51 05/11/16 07:51 Laboratory Results 05/11/16 06:00 05/11/16 06:00 05/10/16 05/11/16 05/12/16 05:59 05:59 05:59 Intake Total 5778 5120 Output Total 2500 6600 200 Balance 3278 -1480 -200 PT 20.5 SEC (12.0-15.0) H 05/07/16 05:10 INR 1.75 (0.83-1.16) H 05/07/16 05:10 - Physical Exam Constitutional: no apparent distress Eyes: PERRL Ears, Nose, Mouth, Throat: moist mucous membranes, other (right IJ CVC bleeding significantly this morning) Cardiovascular: regular rate and rhythym, no murmur, rub, or gallop Respiratory: no respiratory distress, no rales or rhonchi Gastrointestinal: normoactive bowel sounds, soft, non-tender abdomen Genitourinary: other (scrotal swelling much improved. Still red. Blisters at base open, no purulence. TTP) Skin: warm Musculoskeletal: full muscle strength Neurologic: AAOx3 Psychiatric: interacting appropriately ICD10 Worksheet Patient Problems: Problems Problem Status Diagnosed Hypotension Acute Rectal abscess Acute Rectal cellulitis Acute Scrotal edema Acute Septic shock Acute Rectal pain Acute
[2016-05-11] MEDS: LISINOPRIL 5 MG TAB PO SCH (08:55)
[2016-05-11] MEDS: CARVEDILOL 25 MG TAB PO SCH (08:55)
[2016-05-11] MEDS: ATORVASTATIN CALCIUM 10 MG TAB PO SCH (08:55)
[2016-05-11] MEDS: SENNOSIDES/DOCUSATE SODIUM TAB PO SCH ×2 (08:56→20:08)
[2016-05-11] MEDS ORDERED: ALTEPLASE 2 MG VIAL IVP PRN (11:06)
--- NOTE | 2016-05-11 13:59 | PDINTPN ---
Gastroenterology Manager Progress Note Assessment/Plan: Assessment: #Sepsis due to perirectal abscess and ? Josiah's syndrome with increasing cellulitis but it appears better daily. Hemodynamics are improved but with leukocytosis. Post sphincterotomy and then I/D #VINI improved with creatinine from 2.2 to 1.2 #Remote kidney donation #CAD with a stent 5y/a #New right lung peripheral infiltrate, resolved on CXR. Must have been a mucus plug Plan: On Zosyn, clindamycin Pelvic CT done Proph: heparin US of testis normal with some swelling of the scrotal sac which is improved 05/11/16 14:00 Subjective: Pain is much better Objective: Vital Signs Temp Pulse Resp BP Pulse Ox 36.9 C 74 14 132/70 H 99 05/11/16 11:46 05/11/16 11:46 05/11/16 11:46 05/11/16 11:46 05/11/16 11:46 Laboratory Results 05/11/16 06:00 05/11/16 06:00 05/10/16 05/11/16 05/12/16 05:59 05:59 05:59 Intake Total 5778 5120 1000 Output Total 2500 6600 950 Balance 3278 -1480 50 PT 20.5 SEC (12.0-15.0) H 05/07/16 05:10 INR 1.75 (0.83-1.16) H 05/07/16 05:10 Physical Exam - Physical Exam General Appearance: alert, no apparent distress EENT: normal ENT inspection Neck: non-tender Respiratory: lungs clear Cardiac/Chest: regular rate, rhythm Abdomen: non-tender, soft Male Genitalia: other (less edema and erythema) Back: Normal inspection Skin: warm/dry Lymphatic: no adenopathy Extremities: non-tender, No pedal edema Neuro/Psych: alert ICD10 Worksheet Patient Problems: Problems Problem Status Diagnosed Hypotension Acute Rectal abscess Acute Rectal cellulitis Acute Scrotal edema Acute Septic shock Acute Rectal pain Acute
--- NOTE | 2016-05-11 17:54 | DX ---
PICC Placement Clinical Indication: Sepsis, needs IV antibiotics for a perianal abscess. Informed Consent: Obtained from the patient. Risks and benefits were discussed. Technique: Patient is placed in supine position. A "timeout" procedure was performed to identify th e correct patient and the correct procedure. 1% Xylocaine was used for local anesthetic. All eleme nts of maximal sterile barrier technique including cap, mask, sterile gown, sterile gloves, large elijah rile sheet, hand hygiene, and 2% chlorhexidine for cutaneous antisepsis, followed. Ultrasound evaluation of potential access site was performed. After successfully identifying a patent vessel, ultrasound guidance was used to puncture the vein. A permanent recording was created for the patient's record. When ultrasound is used, sterile gel and probe covers are used. Procedures Performed 1. Ultrasound-guided puncture of the basilic vein. 2. Microwire was passed under fluoroscopic guidance and serially exchanged for the peel away. 3. Measuring wire was used to estimate the length of the PICC, and it was trimmed at the 45 cm estela. 4. The PICC was advanced to the SVC/right atrial junction over the measuring wire. The measuring wire and dilator were removed. EBL: Less than 10 mL. Specimens: None. Fluoroscopy Time: 0 minutes. 0.5 mGy Operative Report: After obtaining informed consent and performing a formal timeout, the right arm was prepped and draped. 1% lidocaine local field block was achieved. The basilic vein was punctured unde r direct ultrasound visualization after deeming the vessel patent. Microwire was passed under fluoros copic guidance and serially exchanged for the peel-away dilator. The measuring wire was used to estim ate the length of the PICC. The PICC was trimmed to 45 cm. The PICC was advanced over the measuring w floridalma to the SVC/right atrial junction. The measuring wire and peel-away were removed. The PICC was sec ured and dressed with sterile gauze dressing. Plan: Single-lumen PICC ready for use. Cross-Cutting Measure: Patient's current list of medications including all known prescriptions, over -the-counter medications, herbals, and vitamin/mineral/dietary supplements are reviewed. Medications ' name, dosage, frequency, and route of administration are confirmed. Prophylactic Antibiotic: Cefazolin was not ordered and administered for antimicrobial prophylaxis be cause it was not medically necessary. VTE Prophylaxis: There is not an order for VTE prophylaxis to be given within 24 hours of the proced ure end time. VTE prophylaxis was not given because it was not medically necessary. Jesús Cheek M.D., [facility], [facility].
[2016-05-11] MEDS: TEMAZEPAM 15 MG CAP PO PRN (21:11)
--- NOTE | 2016-05-11 21:22 | PCMIDPN ---
Assessment/Plan: Assessment: Perirectal abscess and perineal cellulitis. Group a strep in culture. On vancomycin, Zosyn and clindamycin. Clinically the patient's affected area appears to be significantly better. The intensity of the erythema has decreased in the perineum just posterior to the scrotum. Will continue the Zosyn and clindamycin. Doubt further surgical intervention will be necessary. The patient's general appearance is nontoxic. Plan: 1. Continue both Zosyn and clindamycin. 2. Follow culture results and clinical course. Subjective: Patient is in good spirits. No new complaints. No fevers. Feels that the perineal area is much less painful. Objective: Zosyn #5 clindamycin #5 Vital Signs Temp Pulse Resp BP Pulse Ox 36.7 C 89 16 142/79 H 92 05/11/16 20:00 05/11/16 20:00 05/11/16 20:00 05/11/16 20:00 05/11/16 20:00 Laboratory Results 05/11/16 06:00 05/11/16 06:00 05/10/16 05/11/16 05/12/16 05:59 05:59 05:59 Intake Total 5778 5120 1500 Output Total 2500 6600 950 Balance 3278 -1480 550 - Physical Exam General Appearance: WD/WN, alert, no apparent distress, non-toxic Respiratory: lungs clear, normal breath sounds, No respiratory distress Cardiac/Chest: regular rate, rhythm, No tachycardia Extremities: non-tender, normal inspection Abdomen: non-tender, soft Male Genitalia: normal genitalia, erythema (decreased from previous exam two days ago.), other Skin: normal color, warm/dry, No rash Neuro/Psych: alert, normal mood/affect, oriented x 3 ICD10 Worksheet Patient Problems: Problems Problem Status Diagnosed Hypotension Acute Rectal abscess Acute Rectal cellulitis Acute Scrotal edema Acute Septic shock Acute Rectal pain Acute
[2016-05-12] MEDS: oxyCODONE IR 5 MG TAB PO PRN ×7 (03:05→23:26)
[2016-05-12] MEDS: CLINDAMYCIN 600 MG/DEXTROSE 50 ML IV SCH ×3 (06:14→22:24)
[2016-05-12] MEDS: DEXTROSE IV SCH ×4 (06:14→23:20)
[2016-05-12] MEDS: PIPERACILLIN IV SCH ×4 (06:14→23:20)
[2016-05-12] MEDS: TAZOBACTAM IV SCH ×4 (06:14→23:20)
[2016-05-12] MEDS: HEPARIN 5,000 UNIT/0.5 ML SYR SC SCH ×3 (06:15→22:24)
[2016-05-12 06:34] LABS: HEMATOCRIT 27.1 % (40.0-51.0); HEMOGLOBIN 9.8 g/dL (13.7-17.5); MEAN CELL HEMOGLOBIN 31.3 pg (27.9-34.1); MEAN CELL HEMOGLOBIN CONCENTR. 36.2 g/dL (32.4-36.7); MEAN CELL VOLUME 86.6 fL (81.5-99.8); RED BLOOD CELL COUNT 3.13 10^6/uL (4.40-6.38); RED CELL DISTRIBUTION WIDTH 13.2 % (11.5-15.2)
[2016-05-12 06:52] LABS: ANION GAP 8 mEq/L (8-16); CALCIUM 7.9 mg/dL (8.5-10.4); CARBON DIOXIDE 26 mEq/l (22-31); CHLORIDE 103 mEq/L (97-110); CREATININE 1.1 mg/dL (0.7-1.3); GLOMERULAR FILTRATION RATE > 60; GLUCOSE 86 mg/dL (70-100); POTASSIUM 3.6 mEq/L (3.5-5.2); SODIUM 137 mEq/L (134-144)
[2016-05-12] MEDS: LISINOPRIL 5 MG TAB PO SCH (08:06)
[2016-05-12] MEDS: SENNOSIDES/DOCUSATE SODIUM TAB PO SCH ×2 (08:07→20:12)
[2016-05-12] MEDS: CARVEDILOL 25 MG TAB PO SCH (08:07)
[2016-05-12] MEDS: ATORVASTATIN CALCIUM 10 MG TAB PO SCH (08:07)
--- NOTE | 2016-05-12 08:56 | HOSPPROG ---
Hospitalist Progress Note Assessment/Plan: #Septic shock: resolved #Strep pyogenes perirectal abscess -Zosyn, Clinda IV #Scrotal cellulitis -improved. US with no abscess. 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 Dosed IV lasix yesterday -Resume Coreg, statin, ASA and MARIE-I #VINI: resolved #Anal fissure -s/p lateral sphincterotomy #Hypomagnesium -repleted #Diet: regular #Deconditioning: PT, getting out of bed #DVT ppx: SQH #Disp: cont IV abx and follow cultures Subjective: ambulating more. Scrotum more tender today Objective: Vital Signs Temp Pulse Resp BP Pulse Ox 36.9 C 86 16 141/81 H 92 05/12/16 08:00 05/12/16 08:00 05/12/16 08:00 05/12/16 08:00 05/12/16 08:00 Laboratory Results 05/12/16 06:05 05/12/16 06:05 05/11/16 05/12/16 05/13/16 05:59 05:59 05:59 Intake Total 5120 1500 Output Total 6600 950 Balance -1480 550 PT 20.5 SEC (12.0-15.0) H 05/07/16 05:10 INR 1.75 (0.83-1.16) H 05/07/16 05:10 - Physical Exam Constitutional: no apparent distress Eyes: PERRL Ears, Nose, Mouth, Throat: moist mucous membranes, hearing normal Cardiovascular: regular rate and rhythym Respiratory: no respiratory distress, no rales or rhonchi Gastrointestinal: normoactive bowel sounds, soft, non-tender abdomen Genitourinary: other (less scrotal swelling. Ulcer at base scrotum scabbing over ) Skin: warm Musculoskeletal: full muscle strength Neurologic: AAOx3 Psychiatric: interacting appropriately ICD10 Worksheet Patient Problems: Problems Problem Status Diagnosed Hypotension Acute Rectal abscess Acute Rectal cellulitis Acute Scrotal edema Acute Septic shock Acute Rectal pain Acute
--- NOTE | 2016-05-12 11:36 | PCMIDPN ---
Assessment/Plan: Assessment: Perirectal abscess and perineal cellulitis. Group a strep in culture. On Zosyn and clindamycin. Clinically the patient's affected area appears to be significantly better. The intensity of the erythema has decreased in the perineum just posterior to the scrotum. Will continue the Zosyn and clindamycin. Doubt further surgical intervention will be necessary. The patient's general appearance is nontoxic. Likely will plan on changing over to a once daily agent like ertapenem to complete treatment upon discharge. Expect a 4 week total course of treatment. Plan: 1. Continue both Zosyn and clindamycin. 2. Follow culture results and clinical course. 05/12/16 11:34 Subjective: Patient doing better. Ambulating in the hallway. No fevers. Pain has coalesced to the left side of the perirectal area. Objective: zosyn #6 clindamycin #6 Vital Signs Temp Pulse Resp BP Pulse Ox 36.9 C 86 16 141/81 H 92 05/12/16 08:00 05/12/16 08:00 05/12/16 08:00 05/12/16 08:00 05/12/16 08:00 Laboratory Results 05/12/16 06:05 05/12/16 06:05 05/11/16 05/12/16 05/13/16 05:59 05:59 05:59 Intake Total 5120 1500 Output Total 6600 950 Balance -1480 550 - Physical Exam General Appearance: WD/WN, alert, no apparent distress, non-toxic Respiratory: lungs clear, normal breath sounds, No respiratory distress Cardiac/Chest: regular rate, rhythm, No tachycardia Male Genitalia: normal genitalia, erythema (mild), scrotal edema Rectal: normal exam, perirectal area Skin: normal color, warm/dry, No rash Neuro/Psych: alert, normal mood/affect, oriented x 3 ICD10 Worksheet Patient Problems: Problems Problem Status Diagnosed Hypotension Acute Rectal abscess Acute Rectal cellulitis Acute Scrotal edema Acute Septic shock Acute Rectal pain Acute
[2016-05-12] MEDS: ACETAMINOPHEN 325 MG TAB PO PRN (20:12)
[2016-05-12] MEDS: TEMAZEPAM 15 MG CAP PO PRN (23:27)
[2016-05-13] MEDS: oxyCODONE IR 5 MG TAB PO PRN ×6 (04:21→22:03)
[2016-05-13 04:36] LABS: HEMOGLOBIN 9.3 g/dL (13.7-17.5); MEAN CELL HEMOGLOBIN 31.1 pg (27.9-34.1); MEAN CELL HEMOGLOBIN CONCENTR. 35.8 g/dL (32.4-36.7); RED BLOOD CELL COUNT 2.99 10^6/uL (4.40-6.38); RED CELL DISTRIBUTION WIDTH 13.5 % (11.5-15.2)
[2016-05-13 04:59] LABS: ANION GAP 8 mEq/L (8-16); CALCIUM 7.8 mg/dL (8.5-10.4); CARBON DIOXIDE 28 mEq/l (22-31); CHLORIDE 102 mEq/L (97-110); CREATININE 1.1 mg/dL (0.7-1.3); GLOMERULAR FILTRATION RATE > 60; GLUCOSE 86 mg/dL (70-100); POTASSIUM 3.3 mEq/L (3.5-5.2); SODIUM 138 mEq/L (134-144)
[2016-05-13] MEDS: DEXTROSE IV SCH ×2 (06:15→12:00)
[2016-05-13] MEDS: PIPERACILLIN IV SCH ×2 (06:15→12:00)
[2016-05-13] MEDS: HEPARIN 5,000 UNIT/0.5 ML SYR SC SCH ×3 (06:15→21:59)
[2016-05-13] MEDS: TAZOBACTAM IV SCH ×2 (06:15→12:00)
[2016-05-13] MEDS: CLINDAMYCIN 600 MG/DEXTROSE 50 ML IV SCH (06:55)
[2016-05-13] MEDS: LISINOPRIL 5 MG TAB PO SCH (09:59)
[2016-05-13] MEDS: CARVEDILOL 25 MG TAB PO SCH (09:59)
[2016-05-13] MEDS: SENNOSIDES/DOCUSATE SODIUM TAB PO SCH ×2 (10:00→21:59)
[2016-05-13] MEDS: ATORVASTATIN CALCIUM 10 MG TAB PO SCH (10:00)
--- NOTE | 2016-05-13 12:57 | HOSPPROG ---
Hospitalist Progress Note Assessment/Plan: 60-year-old male presented emergency room complaints of fever. This is my 1st encounter with the patient, chart reviewed. Patient discussed with Dr. Ribeiro of Infectious Disease. #Septic shock: resolved #Strep pyogenes perirectal abscess -Zosyn, Clinda IV #Scrotal cellulitis -improved. US with no abscess. 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 Dosed IV lasix -Coreg, statin, ASA and MARIE-I #VINI: resolved #Anal fissure -s/p lateral sphincterotomy #Hypomagnesium -replaced #Diet: regular #Deconditioning: PT, getting out of bed #DVT ppx: SQH #Disp: cont IV abx and follow cultures Plan to continue outpatient IV antibiotic therapy Patient will discharged to his son's house who lives locally He plans to return to [place] after his therapy is complete Subjective: Having slight increase in pain today. Patient been up out of bed several times this morning. Slept well last evening. Objective: Vital Signs Temp Pulse Resp BP Pulse Ox 37.1 C 85 16 161/100 H 90 L 05/13/16 11:23 05/13/16 11:23 05/13/16 11:23 05/13/16 11:23 05/13/16 11:23 Laboratory Results 05/13/16 04:34 05/13/16 04:34 05/12/16 05/13/16 05/14/16 05:59 05:59 05:59 Intake Total 1500 1300 Output Total 950 Balance 550 1300 PT 20.5 SEC (12.0-15.0) H 05/07/16 05:10 INR 1.75 (0.83-1.16) H 05/07/16 05:10 - Physical Exam Constitutional: no apparent distress, appears nourished, uncomfortable Eyes: PERRL, anicteric sclera, EOMI Ears, Nose, Mouth, Throat: moist mucous membranes, hearing normal, ears appear normal Cardiovascular: regular rate and rhythym, No JVD, No edema Respiratory: no respiratory distress, no rales or rhonchi, reduced air movement Gastrointestinal: normoactive bowel sounds, No tenderness, No ascites Skin: warm, no rashes or abrasions, erythema Musculoskeletal: normal joint ROM, no joint effusions, generalized weakness Neurologic: AAOx3 Psychiatric: interacting appropriately, not anxious, not encephalopathic ICD10 Worksheet Patient Problems: Problems Problem Status Diagnosed Hypotension Acute Rectal abscess Acute Rectal cellulitis Acute Scrotal edema Acute Septic shock Acute Rectal pain Acute
--- NOTE | 2016-05-13 12:59 | PCMIDPN ---
Assessment/Plan: Assessment: Perirectal abscess and perineal cellulitis. Group a strep in culture. The patient is significantly improved. He is able to ambulate with less pain. Pain control is still 1 of the major issues is keeping him inpatient however. Given his having already received 1 week of broad-spectrum coverage will transition him to intravenous ceftriaxone 2 g daily for the remainder of a 4 week course. This is obviously concentrating on the group a strep seen in the perirectal abscess. Plan: 1. Discontinue both Zosyn and clindamycin. 2. Start ceftriaxone 2 g IV Q 24 hours. Anticipate a 4 week course from surgery. 3. Inter agency form completed. Patient will be spending time with his son here in town. His is driving back to [facility] where they live. 05/12/16 11:34 05/13/16 15:56 Subjective: Patient is resting comfortably in his hospital bed. He has no complaints. Still with some tenderness at the base of the scrotum and just perirectally which does inhibit his movement to a significant degree. Does continue to need significant pain control. No fevers or chills. Overall feels better. Objective: Zosyn # 7 Clindamycin # 7 Vital Signs Temp Pulse Resp BP Pulse Ox 37.1 C 85 16 161/100 H 90 L 05/13/16 11:23 05/13/16 11:23 05/13/16 11:23 05/13/16 11:23 05/13/16 11:23 Laboratory Results 05/13/16 04:34 05/13/16 04:34 05/12/16 05/13/16 05/14/16 05:59 05:59 05:59 Intake Total 1500 1300 Output Total 950 Balance 550 1300 - Physical Exam General Appearance: WD/WN, alert, no apparent distress, non-toxic Respiratory: lungs clear, normal breath sounds, No respiratory distress Cardiac/Chest: regular rate, rhythm, No tachycardia Skin: normal color, warm/dry, No rash Neuro/Psych: alert, normal mood/affect ICD10 Worksheet Patient Problems: Problems Problem Status Diagnosed Hypotension Acute Rectal abscess Acute Rectal cellulitis Acute Scrotal edema Acute Septic shock Acute Rectal pain Acute
--- NOTE | 2016-05-13 13:01 | PDIAF ---
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 PICC Care - Routine: Yes - Orders Services needed: Registered Nurse - Labs/Radiology CBC Date: 05/16/16 (weekly) CMP Date: 05/16/16 (weekly) Call or Fax Lab and Imaging Results to: Patrick Ribeiro MD - Follow Up Care Current Providers and Referrals: OUT OF STATE,. [Primary Care Provider] - As per Instructions
[2016-05-13] MEDS: ACETAMINOPHEN 325 MG TAB PO PRN (16:13)
[2016-05-13] MEDS: ONDANSETRON DISINTEGRATING 4 MG TAB PO PRN (18:00)
[2016-05-13] MEDS: TEMAZEPAM 15 MG CAP PO PRN (21:58)
[2016-05-14] MEDS: oxyCODONE IR 5 MG TAB PO PRN ×6 (02:41→23:25)
[2016-05-14] MEDS: HEPARIN 5,000 UNIT/0.5 ML SYR SC SCH ×3 (06:02→23:25)
--- NOTE | 2016-05-14 08:29 | HOSPPROG ---
Hospitalist Progress Note Assessment/Plan: 60-year-old male presented emergency room complaints of fever. This is my 1st encounter with the patient, chart reviewed. Reviewed his care with Dr Cash. 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 #VINI: resolved #Anal fissure -s/p lateral sphincterotomy #Hypomagnesium -replaced #Diet: regular #Deconditioning: PT, getting out of bed #DVT ppx: SQH Objective: Vital Signs Temp Pulse Resp BP Pulse Ox 36.9 C 87 18 164/95 H 92 05/14/16 07:27 05/14/16 07:27 05/14/16 07:27 05/14/16 07:27 05/14/16 07:27 Laboratory Results 05/13/16 04:34 05/13/16 04:34 05/13/16 05/14/16 05/15/16 05:59 05:59 05:59 Intake Total 1300 1000 Balance 1300 1000 PT 20.5 SEC (12.0-15.0) H 05/07/16 05:10 INR 1.75 (0.83-1.16) H 05/07/16 05:10 ICD10 Worksheet Patient Problems: Problems Problem Status Diagnosed Hypotension Acute Rectal abscess Acute Rectal cellulitis Acute Scrotal edema Acute Septic shock Acute Rectal pain Acute
[2016-05-14] MEDS: CARVEDILOL 25 MG TAB PO SCH (08:51)
[2016-05-14] MEDS: SENNOSIDES/DOCUSATE SODIUM TAB PO SCH ×2 (08:53→19:56)
[2016-05-14] MEDS: ATORVASTATIN CALCIUM 10 MG TAB PO SCH (08:53)
[2016-05-14] MEDS: LISINOPRIL 5 MG TAB PO SCH (08:54)
--- NOTE | 2016-05-14 11:13 | PCMIDPN ---
Assessment/Plan: Assessment/Plan: 1. Bessie-rectal abscess s/p I & D: - CX with Group A strep - On ceftriaxone as of today. s/p zosyn + clinda - Still with significant amount of erythema and induration and small fluid filled blisters noted. Still quite concerned that he hasn't improved further over past week, -Recommend f/u pelvis CT to further re-evaluate for any development of abscesses , SQ air etc. This will also evaluate his right groin pain -Recheck labs in am. --care coordinated with Kristina and RN. -not ready for d/c just yet. Meds ceftriaxone 1g qd- s/p zosyn , clinda x 7 days. Subjective: Afebrile. apparently has been taking pain meds q3 hours. denies abd pain or diarrhea. Denies sob. less left testicular pain. still with scotrum pain and perineal pain especially involving left buttock. RN just told me he is also having right groin pain. Objective: Vital Signs Temp Pulse Resp BP Pulse Ox 36.9 C 85 18 165/95 H 92 05/14/16 07:27 05/14/16 08:51 05/14/16 07:27 05/14/16 08:54 05/14/16 07:27 Laboratory Results 05/13/16 04:34 05/13/16 04:34 05/13/16 05/14/16 05/15/16 05:59 05:59 05:59 Intake Total 1300 1000 Balance 1300 1000 - Physical Exam General Appearance: alert, no apparent distress Respiratory: lungs clear Cardiac/Chest: regular rate, rhythm Extremities: No swelling Abdomen: normal bowel sounds, non-tender, soft, No distended Male Genitalia: other (induration involving scrotum base, perineum and left buttocks. with erythema. few small clear fluid filled blisters noted as well. ecchymosis noted at base of scrotum. tender to palpate. ) ICD10 Worksheet Patient Problems: Problems Problem Status Diagnosed Hypotension Acute Rectal abscess Acute Rectal cellulitis Acute Scrotal edema Acute Septic shock Acute Rectal pain Acute
[2016-05-14] MEDS: IBUPROFEN 200 MG TAB PO PRN ×2 (12:04→19:55)
[2016-05-14] MEDS ORDERED: IOPAMIDOL (ISOVUE-300) 100 ML BTL IV ONE (12:07)
--- NOTE | 2016-05-14 13:41 | CT ---
CT Scan of the Abdomen and Pelvis (With Contrast) Clinical Indications: Evaluate lobularity of right kidney and evaluate follow up of perirectal absce ss. Comparison: May 03, 2016 May 08, 2016 Technique: Dilute contrast was given orally prior to scanning. 70 mL of Isovue-300 were given intra venously by machine power injection. Multidetector helical CT imaging was performed from the diaphra gm to the symphysis pubis. Delayed imaging was performed in the excretory phase. Dose reduction techn iques were utilized. Findings: There is a small right pleural effusion with adjacent basilar atelectatic change. There is trace pleural effusion on the left. The liver, spleen, and pancreas are unremarkable. The adrenal gla nds are unremarkable. The right kidney has a lobular contour but no definite mass. There is normal ex cretion in the delayed phase. Ureter is unremarkable. The left kidney is surgically absent. Small bow el and colon are grossly unremarkable. There is some inflammatory change along the lower rectum and p erineum but no definite drainable fluid collection. Adjacent skin thickening is present. This is in a similar position and distribution to the May 06, 2016 study. Impression: 1. Edema around the rectum and perineal region without evidence of definite abscess. Largely unchang ed since 2015. 2. Lobular contour to the beaver right kidney without evidence of mass. The patient has had a prior n ephrectomy for transplant donation. 3. Small right effusion and mild anasarca.
--- NOTE | 2016-05-14 14:28 | HOSPPROG ---
Hospitalist Progress Note Assessment/Plan: 60-year-old male presented emergency room complaints of fever. This is my 1st encounter with the patient, chart reviewed. Reviewed his care with Dr Cash. 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 # elevated trops -due to demand ischemia/ had a episode of hypotension w VINI #VINI: resolved #Anal fissure -s/p lateral sphincterotomy #Hypomagnesium -replaced #Diet: regular #Deconditioning: PT, getting out of bed #DVT ppx: SQH Plan: repeat imaging today Subjective: Gordo continues to have pain but overall is better. Objective: Vital Signs Temp Pulse Resp BP Pulse Ox 37.1 C 77 16 168/97 H 92 05/14/16 11:48 05/14/16 11:48 05/14/16 11:48 05/14/16 11:48 05/14/16 11:48 Laboratory Results 05/13/16 04:34 05/13/16 04:34 05/13/16 05/14/16 05/15/16 05:59 05:59 05:59 Intake Total 1300 1000 Balance 1300 1000 PT 20.5 SEC (12.0-15.0) H 05/07/16 05:10 INR 1.75 (0.83-1.16) H 05/07/16 05:10 - Physical Exam Constitutional: no apparent distress, appears nourished, No not in pain Eyes: PERRL Ears, Nose, Mouth, Throat: hearing normal Cardiovascular: regular rate and rhythym Respiratory: no respiratory distress Gastrointestinal: normoactive bowel sounds Skin: warm Musculoskeletal: full muscle strength Neurologic: AAOx3 Psychiatric: interacting appropriately, not anxious ICD10 Worksheet Patient Problems: Problems Problem Status Diagnosed Hypotension Acute Rectal abscess Acute Rectal cellulitis Acute Scrotal edema Acute Septic shock Acute Rectal pain Acute
[2016-05-14] MEDS ORDERED: PROTOCOL POTASSIUM 1 DOSE MISC PRN (14:35)
[2016-05-14 17:21] LABS: POTASSIUM 4.2 mEq/L (3.5-5.2)
[2016-05-14] MEDS: HYDROCORTISONE 0.5% CREAM TP PRN (19:56)
[2016-05-14] MEDS: CALCIUM CARBONATE 500 MG CHEWABLE TAB PO PRN (19:57)
[2016-05-14] MEDS: ACETAMINOPHEN 325 MG TAB PO PRN (23:25)
[2016-05-15] MEDS: ACETAMINOPHEN 325 MG TAB PO PRN (03:55)
[2016-05-15 04:28] LABS: CALCIUM 8.3 mg/dL (8.5-10.4); CARBON DIOXIDE 26 mEq/l (22-31); CHLORIDE 103 mEq/L (97-110); GLOMERULAR FILTRATION RATE > 60; GLUCOSE 86 mg/dL (70-100); SODIUM 138 mEq/L (134-144)
[2016-05-15 04:47] LABS: ANION GAP 9 mEq/L (8-16); POTASSIUM 4.3 mEq/L (3.5-5.2)
[2016-05-15] MEDS: HEPARIN 5,000 UNIT/0.5 ML SYR SC SCH (06:17)
[2016-05-15 07:17] VITALS: BP 153/89; RESP 16; TEMP 98.4; O2SAT 91
[2016-05-15 07:53] LABS: % IMMATURE GRANULYOCYTES 1.3 % (0.0-1.1); ABSOLUTE IMMATURE GRANULOCYTES 0.13 10^3/uL (0.00-0.10); ADD DIFF? NO; ADD MORPH? NO; ADD SCAN? NO; ATYPICAL LYMPHOCYTE FLAG 50 (0-99); FRAGMENT RBC FLAG 0 (0-99); HEMATOCRIT 29.6 % (40.0-51.0); HEMOGLOBIN 10.4 g/dL (13.7-17.5); LEFT SHIFT FLG 10 (0-99); LIPEMIA HEMOLYSIS FLAG 90 (0-99); MEAN CELL HEMOGLOBIN 31.1 pg (27.9-34.1); MEAN CELL HEMOGLOBIN CONCENTR. 35.1 g/dL (32.4-36.7); MEAN CELL VOLUME 88.6 fL (81.5-99.8); MEAN PLATELET VOLUME 9.7 fL (8.7-11.7); PLATELET CLUMPS FLAG 10 (0-99); PLATELET COUNT 438 10^3/uL (150-400); RED BLOOD CELL COUNT 3.34 10^6/uL (4.40-6.38); RED CELL DISTRIBUTION WIDTH 13.8 % (11.5-15.2)
--- NOTE | 2016-05-15 08:02 | PCMIDPN ---
Assessment/Plan: Assessment/Plan: 1. Bessie-rectal abscess s/p I & D: - CX with Group A strep - On ceftriaxone. s/p zosyn + clinda - Still with significant amount of erythema and induration and small fluid filled blisters noted. Still quite concerned that he hasn't improved further over past week, -Ct ab/pelvis without abscess noted. -Recheck cbc today.-----noted to be down/improved. --care coordinated with Kristina -signs and symptoms to monitor for were discussed with patient. Patient needs close f/u in the OP. I have set him up for f/u next week. -possible d/c today if atbx can be set up. Meds ceftriaxone 1g qd-1/2 s/p zosyn , clinda x 7 days. Subjective: Afebrile. Feels better. Still with pain but better. no diarrhea. Denies sob. Objective: Vital Signs Temp Pulse Resp BP Pulse Ox 36.9 C 77 16 153/89 H 91 L 05/15/16 07:17 05/15/16 07:17 05/15/16 07:17 05/15/16 07:17 05/15/16 07:17 Laboratory Results 05/15/16 07:45 05/15/16 03:45 05/14/16 05/15/16 05/16/16 05:59 05:59 05:59 Intake Total 1000 2300 Balance 1000 2300 - Physical Exam General Appearance: alert, no apparent distress Respiratory: lungs clear Cardiac/Chest: regular rate, rhythm Extremities: No swelling Abdomen: normal bowel sounds, non-tender, soft, No distended Male Genitalia: other (scrotal induration with stable ecchymosis noted. not as tender. perineum with moderate iduration still. some weepy areas with serous drainage. erytehmatous) Skin: other (see ablve) ICD10 Worksheet Patient Problems: Problems Problem Status Diagnosed Hypotension Acute Rectal abscess Acute Rectal cellulitis Acute Scrotal edema Acute Septic shock Acute Rectal pain Acute
[2016-05-15] MEDS: ATORVASTATIN CALCIUM 10 MG TAB PO SCH (08:52)
[2016-05-15] MEDS: CARVEDILOL 25 MG TAB PO SCH (08:53)
--- NOTE | 2016-05-15 08:55 | HOSPPROG ---
Hospitalist Progress Note Assessment/Plan: 60-year-old male presented emergency room complaints of fever. Reviewed his care with Dr Cash. 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 # elevated trops -due to demand ischemia/ had a episode of hypotension w VINI #VINI: resolved #Anal fissure -s/p lateral sphincterotomy #Hypomagnesium -replaced #Diet: regular #Deconditioning: PT, getting out of bed #DVT ppx: SQH Plan: dc home Subjective: Gordo is feeling well/ ambulating in room and ready to go. Objective: Vital Signs Temp Pulse Resp BP Pulse Ox 36.9 C 77 16 153/89 H 91 L 05/15/16 07:17 05/15/16 07:17 05/15/16 07:17 05/15/16 07:17 05/15/16 07:17 Laboratory Results 05/15/16 07:45 05/15/16 03:45 05/14/16 05/15/16 05/16/16 05:59 05:59 05:59 Intake Total 1000 2300 Balance 1000 2300 PT 20.5 SEC (12.0-15.0) H 05/07/16 05:10 INR 1.75 (0.83-1.16) H 05/07/16 05:10 - Physical Exam Constitutional: no apparent distress, appears nourished, not in pain Eyes: PERRL Ears, Nose, Mouth, Throat: hearing normal Respiratory: no respiratory distress Skin: warm Musculoskeletal: full muscle strength Neurologic: AAOx3 Psychiatric: interacting appropriately, not anxious ICD10 Worksheet Patient Problems: Problems Problem Status Diagnosed Hypotension Acute Rectal abscess Acute Rectal cellulitis Acute Scrotal edema Acute Septic shock Acute Rectal pain Acute
[2016-05-15] MEDS: LISINOPRIL 5 MG TAB PO SCH (08:57)
[2016-05-15] MEDS: SENNOSIDES/DOCUSATE SODIUM TAB PO SCH (08:58)
[2016-05-15 09:01] VITALS: PULSE 80
--- NOTE | 2016-05-15 09:55 | PDIAF ---
- Diagnosis Diagnosis: group A strep perirectal ascess and extensive cellulitis Code Status: Full Code - Medication Management Discharge Medications: Medications to Continue on Transfer Aspirin [Aspirin 325 mg (*)] 325 mg PO DAILY 05/06/16 [Last Taken Unknown] Carvedilol [Coreg (*)] 12.5 mg PO DAILY 05/06/16 [Last Taken Unknown] Lisinopril [Zestril 2.5 mg (*)] 2.5 mg PO DAILY 05/06/16 [Last Taken Unknown] Simvastatin [Zocor] 20 mg PO DAILY 05/06/16 [Last Taken Unknown] traZODone [traZODONE 100MG (*)] 100 mg PO HS PRN 05/06/16 [Last Taken Unknown] Acetaminophen [Tylenol 325mg (*)] 650 mg PO Q4HRS PRN #0 tab 05/15/16 [Last Taken Unknown] Calcium Carbonate [Tums 500MG (*)] 500 - 1,500 mg PO Q6 PRN #0 tab.chew [Last Taken Unknown] Ibuprofen [Motrin (*)] 400 mg PO Q6HRS PRN #0 tab 05/15/16 [Last Taken Unknown] Polyethylene Glycol 3350 [Miralax 17 gm (*)] 17 gm PO DAILY PRN #0 pkt 05/15/16 [Last Taken Unknown] Sennosides/Docusate Sodium [Senokot-S] 1 - 2 tab PO BID #0 tab 05/15/16 [Last Taken Unknown] oxyCODONE IR [Oxycodone Ir (*)] 5 mg PO Q3HRS PRN #15 tab 05/15/16 [Last Taken Unknown] [facility] Antibiotics: ceftriaxone 1 g IV q 24 hours 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 PICC Care - Routine: Yes - Orders Services needed: Registered Nurse Diet Recommendation: no restrictions on diet Diet Texture: Regular Texture Diet - Labs/Radiology CBC Date: 05/21/16 (weekly) CMP Date: 05/21/16 (weekly) Call or Fax Lab and Imaging Results to: Patrick Ribeiro MD - Follow Up Care Current Providers and Referrals: OUT OF STATE,. [Primary Care Provider] - As per Instructions Laurence Cash MD [Medical Doctor] - 05/23/16 10:00 am (f/u with Dr. Cash Infectious Disease . Check in time is at 9:40am. )
--- NOTE | 2016-05-15 15:37 | GDS ---
[f rep st] DISCHARGE SUMMARY DISCHARGE DIAGNOSES: 1. Septic shock. 2. Perirectal abscess and perineal cellulitis. 3. Leukocytosis. 4. Acute hypoxemic respiratory failure. 5. Deconditioning. 6. Pain. 7. Hypokalemia. 8. Anemia. 9. Coronary artery disease. 10. Elevated troponins due to demand ischemia. 11. Acute kidney injury. 12. Anal fissure. 13. Hypomagnesium. CONSULTATIONS DURING HIS STAY: 1. Dr. Alexandra Victor. 2. Dr. Inder Brenner. 3. Dr. Laurence Cash. 4. Dr. Adolfo Sandoval. BRIEF HISTORY: Mr. Orr is a 60-year-old man with past medical history for coronary artery disease, status post stent who is visiting from [facility]. Prior to coming here, he had been dealing with perianal pain for several weeks. He had seen his primary care doctor in [place], did not identify a fissure for certain. He was given some hydrocortisone cream to apply, but the pain persisted while visiting here. He came to the emergency room and was seen by Dr. Mcnally. At that time, he had a lateral sphincterectomy done, but no abscess was identified at that time. He was sent home. He came back later that night with complaints of fever and shaking chills, and was then seen by Dr. Victor. She did a bedside I and D and he was found to have a deep perirectal abscess. He had an elevated white blood cell count and was started on vancomycin and Zosyn. He became hypotensive and was in the intensive care unit and placed on pressors. He was seen and evaluated by the slip injector and applicator and followed in the ICU. He developed an episode of chest pain. He had an echocardiogram performed which showed an EF of 55%. Subsequently, he was seen by Dr. Adolfo Sandoval with cardiology. Throughout his stay, he started to improve. Eventually, he was transferred to a med/surg floor to complete his recovery. Today, he will be discharged home on IV antibiotics and will follow up with the Infectious Disease team. HOSPITAL COURSE PER PROBLEM: 1. Septic shock, resolved. 2. Perirectal abscess and perineal cellulitis. He was treated with Zosyn and clindamycin. He will be on ceftriaxone daily. He had a repeat CT of the abdomen and pelvis, which showed nothing acute. 3. Leukocytosis, stable. 4. Acute hypoxemic respiratory failure, resolved. 5. Deconditioning, much improved. 6. Pain. Well-controlled with Tylenol. Ibuprofen, and OxyIR. 7. Hypokalemia. Treated. 8. Anemia. This is due to his acute illness. 9. Coronary artery disease, stable. Will follow up with his technical professional in [place]. 10. Elevated troponin. This was due to demand ischemia. He had an episode of hypotension, as well as acute kidney injury that resolved. 11. Anal fissure. He is status post a lateral sphincterotomy. 12. Hypomagnesium, on replacement. PENDING LABS: None. CONDITION AT DISCHARGE: Stable. Blood pressure 153/89, heart rate 88, respiratory rate 16, O2 saturation on room air 93%, temperature 36.9 Celsius. MEDICATIONS AT DISCHARGE: Please see the EMR. DISCHARGE INSTRUCTIONS: 1. If he develops any fever, chills, rigors, or any drainage from the perirectal abscess to return to the ER and call the Infectious Disease team. 2. Further follow up with the Infectious Disease team. He has a follow up appointment. Greater than 30 minutes discharging and coordinating care. /[id number]/MODL MTDD
== END 2016-05-15 10:45 | disposition home or self-care (01) | DRG 853 ==
LOC: F2N 05-07 00:03 → F3E 05-11 16:42
PROVIDERS: ADMIT Student in an Organized Health Care Education/Training Program; ATTEND Student in an Organized Health Care Education/Training Program
PROC: 0D9P0ZZ Drainage of Rectum, Open Approach (ICD-10-PCS; principal; 2016-05-06)
PROC: 02HV33Z Insertion of Infusion Device into Superior Vena Cava, Percutaneous Approach (ICD-10-PCS; 2016-05-11)
DX: A40.0 Sepsis due to streptococcus, group A (principal); R65.21 Severe sepsis with septic shock; J96.01 Acute respiratory failure with hypoxia; K61.1 Rectal abscess; L03.315 Cellulitis of perineum; N17.9 Acute kidney failure, unspecified; E87.6 Hypokalemia; D64.9 Anemia, unspecified; I25.10 Atherosclerotic heart disease of native coronary artery without angina pectoris; E83.42 Hypomagnesemia; I10 Essential (primary) hypertension; R07.89 Other chest pain; E78.5 Hyperlipidemia, unspecified; Z95.5 Presence of coronary angioplasty implant and graft; Z87.891 Personal history of nicotine dependence; Z90.5 Acquired absence of kidney; Z23 Encounter for immunization
CPT/HCPCS: 82947-QW; 96365; C1751; G0009; J0696; J1250; J2405; J2543; J2550; J3370; J3475; Q9967

== ENCOUNTER 2016-05-24 09:11 | Inpatient (IN) | payer OTHER ==
[~2016-05-24 09:11] MED LIST: BUPIVACAINE 0.5% 30 ML SDV ONE
[2016-05-24] MEDS ORDERED: LR 1,000 ML IV ONE (09:40)
[2016-05-24] MEDS ORDERED: fentaNYL 100 MCG/2 ML INJ ONE ×2 (11:26→13:00)
[2016-05-24] MEDS ORDERED: PROPOFOL 200 MG/20 ML VIAL ONE (11:26)
[2016-05-24] MEDS ORDERED: ROCURONIUM 50 MG/5 ML VIAL ONE (12:07)
[2016-05-24] MEDS ORDERED: ESMOLOL HCL 100 MG/10 ML VIAL IV ONE (12:07)
[2016-05-24] MEDS ORDERED: MIDAZOLAM 2 MG/2 ML VIAL ONE (12:18)
[2016-05-24] MEDS ORDERED: ONDANSETRON 4 MG/2 ML VIAL IVP PRN (13:09)
[2016-05-24] MEDS ORDERED: HYDROmorphONE/DILAUDID 1 MG/ML SYR ONE ×3 (13:16→14:01)
--- NOTE | 2016-05-24 13:31 | GOP ---
[f rep st] OPERATIVE REPORT DATE OF OPERATION: SURGEON: Alexandra Victor MD PREOPERATIVE DIAGNOSIS: Soft tissue infection of the perineum and left buttock. POSTOPERATIVE DIAGNOSIS: Soft tissue infection of the perineum and left buttock. PROCEDURE PERFORMED: Debridement of necrotic tissue, left buttock and perineal areas with wound vac uum-assisted closure device placement. FINDINGS: Two ulcerated wounds with necrotic tissue of the left buttock traveling through the perine al area to a small ulcer noted on the scrotum at roughly the raphe. SPECIMENS: Tissue sent for Gram-stain and culture. ESTIMATED BLOOD LOSS: 200 mL. DESCRIPTION OF PROCEDURE: After informed consent was obtained and therapeutic antibiotic therapy was continued, the patient was taken to the operating room, placed in a supine position. SCDs were plac ed to bilateral lower extremities. General anesthesia was administered. He was repositioned in the prone position, and prepped and draped in a sterile fashion. After an appropriate surgical pause, local anesthetic was injected in the skin and subcutaneous tissu e around the 2 large ulcers, and an elliptical incision was made around these using a 10 blade. The necrotic subcutaneous fat was debrided sharply using a scalpel, as well as using Bovie electrocautery . The wound was noted to track anteriorly to the third ulcerated wound in the scrotum. The skin of the scrotum was then incised between the 2 wounds. Hemostasis was achieved using Surgicel and Bovie electrocautery. Once the necrotic tissue was fully debrided, a wound VAC was placed also, after noti ng hemostasis. The patient was then repositioned in the supine position. Once he is awakened from general anesthesi a, he will be extubated and taken to the postanesthesia recovery unit. INDICATIONS FOR PROCEDURE: Bebeto is a 60-year-old man, who noted perirectal pain and was found to have a soft tissue infection of the left buttock, perineal area, and possible epididymis associated w ith sepsis, which ultimately required hospitalization with IV antibiotic therapy. Attempted drainage of the perianal area revealed no real purulent abscess. Eventually, he stabilized with antibiotics and was discharged home on antibiotic therapy. However, 2 days ago when he saw his infectious Diseas e doc, Dr. Cash, he was found to have 2 large ulcerating wounds of the left buttock and perineal regio n, and a small wound of the scrotal region near the median raphe. He was referred to Surgery, and op jeffy for debridement and possible wound VAC placement. /[id number]/MODL
[2016-05-24] MEDS ORDERED: ACETAMINOPHEN 500 MG TAB ONE (13:49)
[2016-05-24] MEDS: HYDROCODONE/APAP 5/325 TAB PO PRN ×2 (16:26→20:39)
[2016-05-24] MEDS: DOCUSATE SODIUM 100 MG CAP PO SCH ×2 (16:26→20:39)
[2016-05-24] MEDS: LR 1,000 ML IV SCH (17:12)
[2016-05-24] MEDS: TEMAZEPAM 15 MG CAP PO PRN (22:02)
[2016-05-25] MEDS: HYDROCODONE/APAP 5/325 TAB PO PRN ×6 (02:21→22:28)
[2016-05-25] MEDS: LR 1,000 ML IV SCH (02:54)
[2016-05-25] MEDS: LISINOPRIL 5 MG TAB PO SCH (08:56)
[2016-05-25] MEDS ORDERED: traZODone 100 MG TAB PO PRN (08:57)
[2016-05-25] MEDS ORDERED: ATORVASTATIN CALCIUM 20 MG TAB PO SCH (09:00)
[2016-05-25] MEDS ORDERED: cefTRIAXone 1 GM VIAL IV SCH (09:00)
[2016-05-25] MEDS ORDERED: NON-FORMULARY NEW DRUG (Simvastatin [Zocor] 20 MG) PO SCH (09:00)
[2016-05-25] MEDS: DOCUSATE SODIUM 100 MG CAP PO SCH ×2 (09:01→22:32)
--- NOTE | 2016-05-25 09:01 | SOAPPROG ---
SOAP Progress Note Assessment/Plan: Assessment: s/p I&D left buttock/perineum/scrotum Plan: continue wound vac and IV antibiotic therapy wound vac change on Saturday in the OR 05/25/16 09:00 Subjective: pain controlled with oxy IR Objective: Vital Signs Temp Pulse Resp BP Pulse Ox 36.7 C 71 18 160/94 H 96 05/25/16 08:00 05/25/16 08:00 05/25/16 08:00 05/25/16 08:00 05/25/16 08:00 Microbiology 05/24/16 12:00 Gram Stain - Final Buttock - Tissue 05/24/16 05/25/16 05/26/16 05:59 05:59 05:59 Intake Total 3050 Output Total 2000 Balance 1050 Physical Exam - Physical Exam General Appearance: alert Abdomen: soft, No distended Male Genitalia: other (wound vac in place without leak) ICD10 Worksheet Patient Problems: Problems Problem Status Diagnosed Hypotension Acute Rectal abscess Acute Rectal cellulitis Acute Rectal pain Acute Scrotal edema Acute Septic shock Acute
[2016-05-25] MEDS: CARVEDILOL 6.25 MG TAB PO SCH (10:26)
[2016-05-25] MEDS: ENOXAPARIN 40 MG/0.4 ML SYR SC SCH (10:27)
[2016-05-25] MEDS: ATORVASTATIN CALCIUM 10 MG TAB PO SCH (10:32)
[2016-05-25] MEDS: TEMAZEPAM 15 MG CAP PO PRN (22:32)
[2016-05-26] MEDS: HYDROCODONE/APAP 5/325 TAB PO PRN ×4 (03:59→20:41)
[2016-05-26] MEDS: LISINOPRIL 5 MG TAB PO SCH (08:49)
[2016-05-26] MEDS: ATORVASTATIN CALCIUM 10 MG TAB PO SCH (08:50)
[2016-05-26] MEDS: CARVEDILOL 6.25 MG TAB PO SCH (08:50)
[2016-05-26] MEDS: DOCUSATE SODIUM 100 MG CAP PO SCH ×2 (08:50→20:41)
[2016-05-26] MEDS: ENOXAPARIN 40 MG/0.4 ML SYR SC SCH (08:52)
--- NOTE | 2016-05-26 11:47 | SOAPPROG ---
SOAP Progress Note Assessment/Plan: Assessment: s/p I&D left buttock/perineum/scrotum Plan: continue wound vac and IV antibiotic therapy wound vac change tomorrow in OR 05/26/16 11:40 Subjective: pain controlled Objective: Vital Signs Temp Pulse Resp BP Pulse Ox 36.7 C 79 16 145/88 H 97 05/26/16 07:48 05/26/16 08:50 05/26/16 07:48 05/26/16 08:50 05/26/16 07:48 Microbiology 05/24/16 12:00 Gram Stain - Final Buttock - Tissue Laboratory Results 05/26/16 04:05 05/25/16 05/26/16 05/27/16 05:59 05:59 05:59 Intake Total 3050 400 Output Total 2000 920 Balance 1050 -520 Physical Exam - Physical Exam General Appearance: alert Rectal: other (wound vac in place without leak, serosanguinous drainage minimal) ICD10 Worksheet Patient Problems: Problems Problem Status Diagnosed Hypotension Acute Rectal abscess Acute Rectal cellulitis Acute Rectal pain Acute Scrotal edema Acute Septic shock Acute
[2016-05-26] MEDS: TEMAZEPAM 15 MG CAP PO PRN (21:49)
[2016-05-27] MEDS: HYDROCODONE/APAP 5/325 TAB PO PRN ×5 (03:41→22:15)
[2016-05-27] MEDS: LISINOPRIL 5 MG TAB PO SCH (08:52)
[2016-05-27] MEDS ORDERED: MIDAZOLAM 2 MG/2 ML VIAL ONE (09:56)
[2016-05-27] MEDS ORDERED: fentaNYL 100 MCG/2 ML INJ ONE ×3 (10:06→11:47)
[2016-05-27] MEDS ORDERED: PROPOFOL 200 MG/20 ML VIAL ONE (10:07)
[2016-05-27] MEDS ORDERED: BUPIVACAINE 0.5% 30 ML SDV ONE (10:24)
[2016-05-27] MEDS ORDERED: METOCLOPRAMIDE 10 MG/2 ML VIAL ONE (10:26)
[2016-05-27] MEDS ORDERED: ROCURONIUM 50 MG/5 ML VIAL ONE (10:27)
[2016-05-27] MEDS ORDERED: ONDANSETRON 4 MG/2 ML VIAL ONE (10:27)
[2016-05-27] MEDS ORDERED: KETOROLAC 30 MG/1 ML SDV ONE (10:47)
[2016-05-27] MEDS ORDERED: GLYCOPYRROLATE 0.2 MG/1 ML VIAL ONE ×2 (10:47)
--- NOTE | 2016-05-27 11:36 | GOP ---
[f rep st] OPERATIVE REPORT DATE OF OPERATION: SURGEON: Alexandra Victor MD PREOPERATIVE DIAGNOSIS: Soft tissue infection of the left buttock, perineum, and scrotum. POSTOPERATIVE DIAGNOSIS: Soft tissue infection of the left buttock, perineum, and scrotum. PROCEDURE PERFORMED: Wound vacuum-assisted closure device change under anesthesia. FINDINGS: No new necrotic tissue. Nice viable granulation tissue. SPECIMENS: None. ESTIMATED BLOOD LOSS: Less than 5 mL. DESCRIPTION OF PROCEDURE: After informed consent was obtained and therapeutic antibiotics were melissa nued, the patient was taken to the operating room, placed in a supine position. SCDs were placed to bilateral lower extremities. General anesthesia was administered, and he was prepped and draped. After an appropriate surgical pause, the perineum and the buttock area skin was dried and benzoin hudson leonila. The wound VAC was placed with a bridging sponge to the hip. It was tested and noted to have no leak. He will subsequently be awakened from general anesthesia, extubated, and taken to the postanesthesia recovery unit. INDICATIONS FOR PROCEDURE: Bebeto is a 60-year-old man with soft tissue infection of the left butto ck and perineum and scrotum, who required debridement and wound VAC placement 3 days ago. The compli cated wound VAC and he opted for wound VAC change under anesthesia. /[id number]/MODL
[2016-05-27] MEDS: DOCUSATE SODIUM 100 MG CAP PO SCH ×2 (14:32→22:15)
[2016-05-27] MEDS: ATORVASTATIN CALCIUM 10 MG TAB PO SCH (14:33)
[2016-05-27] MEDS: CARVEDILOL 6.25 MG TAB PO SCH (14:33)
[2016-05-27] MEDS: TEMAZEPAM 15 MG CAP PO PRN (22:15)
[2016-05-28] MEDS: HYDROCODONE/APAP 5/325 TAB PO PRN ×5 (02:15→19:17)
--- NOTE | 2016-05-28 06:34 | WOCRNPDOC ---
WOELEAZARN Advanced Assessment Note - Skin Integrity Problem, Advanced Assess Left Hip Dressing Type: Open to Air Skin Integrity Problem Comment: Trac pad "hickey" from foam bridge placed over intact skin rather than over drape "runway" to protect skin. Apply skin repair cream prn.
--- NOTE | 2016-05-28 07:52 | SOAPPROG ---
SOAP Progress Note Assessment/Plan: Assessment: s/p I&D left buttock/perineum/scrotum Plan: continue wound vac and IV antibiotic therapy next vac change Saturday05/28/16 07:51 Subjective: pain controlled Objective: Vital Signs Temp Pulse Resp BP Pulse Ox 36.5 C 69 14 104/56 L 93 05/28/16 02:23 05/28/16 02:23 05/28/16 02:23 05/28/16 02:23 05/28/16 02:23 Microbiology 05/24/16 12:00 Gram Stain - Final Buttock - Tissue Laboratory Results 05/27/16 04:00 05/27/16 05/28/16 05/29/16 05:59 05:59 05:59 Intake Total 800 Output Total 5 Balance 795 Physical Exam - Physical Exam General Appearance: alert Respiratory: lungs clear Cardiac/Chest: regular rate, rhythm Rectal: other (wound vac in place with minimal output and no leak) ICD10 Worksheet Patient Problems: Problems Problem Status Diagnosed Hypotension Acute Rectal abscess Acute Rectal cellulitis Acute Rectal pain Acute Scrotal edema Acute Septic shock Acute
[2016-05-28] MEDS: DOCUSATE SODIUM 100 MG CAP PO SCH ×2 (08:28→19:17)
[2016-05-28] MEDS: ATORVASTATIN CALCIUM 10 MG TAB PO SCH (08:28)
[2016-05-28] MEDS: CARVEDILOL 6.25 MG TAB PO SCH (08:28)
[2016-05-28] MEDS: LISINOPRIL 5 MG TAB PO SCH (08:29)
[2016-05-28] MEDS: TEMAZEPAM 15 MG CAP PO PRN (22:12)
[2016-05-29] MEDS: HYDROCODONE/APAP 5/325 TAB PO PRN ×5 (01:23→20:38)
[2016-05-29 04:55] LABS: % IMMATURE GRANULYOCYTES 0.3 % (0.0-1.1); ABSOLUTE IMMATURE GRANULOCYTES 0.02 10^3/uL (0.00-0.10); ADD DIFF? NO; ADD MORPH? NO; ADD SCAN? NO; ATYPICAL LYMPHOCYTE FLAG 30 (0-99); FRAGMENT RBC FLAG 0 (0-99); HEMATOCRIT 35.3 % (40.0-51.0); HEMOGLOBIN 11.7 g/dL (13.7-17.5); LEFT SHIFT FLG 0 (0-99); LIPEMIA HEMOLYSIS FLAG 80 (0-99); MEAN CELL HEMOGLOBIN 30.5 pg (27.9-34.1); MEAN CELL HEMOGLOBIN CONCENTR. 33.1 g/dL (32.4-36.7); MEAN CELL VOLUME 92.2 fL (81.5-99.8); MEAN PLATELET VOLUME 8.9 fL (8.7-11.7); PLATELET CLUMPS FLAG 10 (0-99); PLATELET COUNT 487 10^3/uL (150-400); RED BLOOD CELL COUNT 3.83 10^6/uL (4.40-6.38); RED CELL DISTRIBUTION WIDTH 13.2 % (11.5-15.2)
[2016-05-29 05:17] LABS: ALANINE AMINOTRANSFERASE 37 IU/L (21-72); ALBUMIN 3.7 g/dL (3.5-5.0); ALKALINE PHOSPHATASE 98 IU/L (38-126); ANION GAP 10 mEq/L (8-16); ASPARTATE AMINOTRANSFERASE 30 IU/L (17-59); BILIRUBIN,TOTAL 0.6 mg/dL (0.1-1.4); CALCIUM 9.2 mg/dL (8.5-10.4); CARBON DIOXIDE 26 mEq/l (22-31); CHLORIDE 103 mEq/L (97-110); CREATININE 1.1 mg/dL (0.7-1.3); GLOMERULAR FILTRATION RATE > 60; GLUCOSE 88 mg/dL (70-100); POTASSIUM 4.8 mEq/L (3.5-5.2); SODIUM 139 mEq/L (134-144); TOTAL PROTEIN 7.2 g/dL (6.3-8.2)
[2016-05-29] MEDS: LISINOPRIL 5 MG TAB PO SCH (08:05)
[2016-05-29] MEDS: DOCUSATE SODIUM 100 MG CAP PO SCH ×2 (08:06→20:38)
[2016-05-29] MEDS: CARVEDILOL 6.25 MG TAB PO SCH (08:06)
[2016-05-29] MEDS: ATORVASTATIN CALCIUM 10 MG TAB PO SCH (08:08)
--- NOTE | 2016-05-29 09:42 | SOAPPROG ---
SOAP Progress Note Assessment/Plan: Assessment: s/p I&D left buttock/perineum/scrotum Plan: continue wound vac and IV antibiotic therapy wound vac change scheduled for tomorrow 05/29/16 09:41 Subjective: feeling a "foul mood" pain controlled with minimal narcotic analgesia Objective: Vital Signs Temp Pulse Resp BP Pulse Ox 36.4 C 65 14 122/84 H 96 05/29/16 07:39 05/29/16 08:06 05/29/16 07:39 05/29/16 08:06 05/29/16 07:39 Microbiology 05/24/16 12:00 Gram Stain - Final Buttock - Tissue Laboratory Results 05/29/16 04:30 05/29/16 04:30 05/28/16 05/29/16 05/30/16 05:59 05:59 05:59 Intake Total 800 375 Output Total 5 1100 Balance 795 -725 Physical Exam - Physical Exam General Appearance: alert Rectal: other (wound vac in place, no longer leaking ) ICD10 Worksheet Patient Problems: Problems Problem Status Diagnosed Hypotension Acute Rectal abscess Acute Rectal cellulitis Acute Rectal pain Acute Scrotal edema Acute Septic shock Acute
[2016-05-29] MEDS: ENOXAPARIN 40 MG/0.4 ML SYR SC SCH (16:28)
--- NOTE | 2016-05-29 16:57 | PCMIDPN ---
Assessment/Plan: Assessment/Plan: 1. Necrotic Soft tissue infection involving buttock, perineum, scrotum: -Intially with perirectal abscess with cx growing Group A Strep. Subsequent extension of infection requiring debridement in OR.'- - Cx with E. coli, bacteroids and non-albicans hailey now. - Given extent of debridement required, extension of infection , cx etc, favor broadening atbx to invanz, micafungin. - will have micro do further ID/sensitivities on the yeast. - for wound vac change in the OR tomorrow. -Depending on how wounds are looking will decide on length of therapy. - Care coordinated with Dr. Victor. Meds cefetriaxone. Subjective: Patient well known to ID service. Seen in office last week with concerns of deep seated and extension of wounds. Discussed with surgery and she arranged for debridement in OR. New cx obtained, showing e. coli, bactereoids, and non- albicans hailey. afebrile. pain with sitting. wound vac noted. denies sob, abd pain or diarrhea. requiring wound vac changes in OR due to pain. Objective: Vital Signs Temp Pulse Resp BP Pulse Ox 36.7 C 75 14 133/97 H 93 05/29/16 15:54 05/29/16 15:54 05/29/16 15:54 05/29/16 15:54 05/29/16 15:54 Microbiology 05/24/16 12:00 Gram Stain - Final Buttock - Tissue Laboratory Results 05/29/16 04:30 05/29/16 04:30 05/28/16 05/29/16 05/30/16 05:59 05:59 05:59 Intake Total 800 375 Output Total 5 1100 Balance 795 -725 - Physical Exam General Appearance: alert, no apparent distress Respiratory: lungs clear Cardiac/Chest: regular rate, rhythm Extremities: other (no swelling) Abdomen: normal bowel sounds, non-tender, soft Skin: other (wound vac perineum, buttocks. still with tenderness to mild palpation at one spot. ) ICD10 Worksheet Patient Problems: Problems Problem Status Diagnosed Hypotension Acute Rectal abscess Acute Rectal cellulitis Acute Rectal pain Acute Scrotal edema Acute Septic shock Acute
[2016-05-29] MEDS: ERTAPENEM 1 GM in NS 100 ML IV SCH (17:28)
[2016-05-29] MEDS: MICAFUNGIN NA 100 MG in NS 100 ML IV SCH (18:41)
[2016-05-29] MEDS: TEMAZEPAM 15 MG CAP PO PRN (22:01)
[2016-05-30] MEDS: HYDROCODONE/APAP 5/325 TAB PO PRN ×4 (03:11→20:22)
[2016-05-30 08:14] LABS: % IMMATURE GRANULYOCYTES 0.2 % (0.0-1.1); ABSOLUTE IMMATURE GRANULOCYTES 0.01 10^3/uL (0.00-0.10); ADD DIFF? NO; ADD MORPH? NO; ADD SCAN? NO; ATYPICAL LYMPHOCYTE FLAG 20 (0-99); FRAGMENT RBC FLAG 0 (0-99); HEMATOCRIT 36.9 % (40.0-51.0); HEMOGLOBIN 12.2 g/dL (13.7-17.5); LEFT SHIFT FLG 0 (0-99); LIPEMIA HEMOLYSIS FLAG 80 (0-99); MEAN CELL HEMOGLOBIN 30.7 pg (27.9-34.1); MEAN CELL HEMOGLOBIN CONCENTR. 33.1 g/dL (32.4-36.7); MEAN CELL VOLUME 92.7 fL (81.5-99.8); MEAN PLATELET VOLUME 8.7 fL (8.7-11.7); PLATELET CLUMPS FLAG 0 (0-99); PLATELET COUNT 459 10^3/uL (150-400); RED BLOOD CELL COUNT 3.98 10^6/uL (4.40-6.38)
[2016-05-30] MEDS ORDERED: fentaNYL 250 MCG/5 ML INJ ONE (08:51)
[2016-05-30] MEDS ORDERED: PROPOFOL 200 MG/20 ML VIAL ONE (08:51)
[2016-05-30] MEDS ORDERED: MIDAZOLAM 2 MG/2 ML VIAL ONE (08:54)
[2016-05-30] MEDS ORDERED: DEXAMETHASONE 4 MG/ML VIAL ONE (09:44)
[2016-05-30] MEDS ORDERED: PHENYLEPHRINE HCL 100 MCG/ML SYR ONE (09:44)
[2016-05-30] MEDS ORDERED: ROCURONIUM 50 MG/5 ML VIAL ONE (09:44)
[2016-05-30] MEDS ORDERED: SUGAMMADEX SODIUM 200 MG/2 ML VIAL IVP ONE (09:47)
--- NOTE | 2016-05-30 10:37 | GOP ---
[f rep st] OPERATIVE REPORT DATE OF OPERATION: SURGEON: Alexandra Victor MD PREOPERATIVE DIAGNOSIS: Soft tissue infection of the left buttock, perineum and scrotum. POSTOPERATIVE DIAGNOSIS: Soft tissue infection of the left buttock, perineum and scrotum. PROCEDURE PERFORMED: Wound VAC replacement. FINDINGS: Healthy granulating base without any residual necrotic tissue. SPECIMENS: None. ESTIMATED BLOOD LOSS: Less than 5 mL. INDICATIONS: Mr. Orr is a 60-year-old man who developed a soft tissue infection of the left buttock , perineum and scrotum requiring debridement. He had a wound VAC placed. Due to the complex nature and location of his wound VAC, he requires exchange under anesthesia. DESCRIPTION OF PROCEDURE: After informed consent was obtained and therapeutic antibiotics were melissa nued, the patient was taken to the operating room, placed in a supine position. SCDs were placed to bilateral lower extremities. Therapeutic antibiotics were continued, and the patient was repositione d in prone position and prepped, then draped non-sterilely. The old wound VAC was removed prior to t he prep. New wound VAC was placed, bridging the suction tubing to his hip. Good seal was noted. Th e patient was then repositioned in the supine position. He was awakened from anesthesia and extubate d, and will be taken to the post anesthesia recovery unit. /[id number]/MODL
[2016-05-30] MEDS: ERTAPENEM 1 GM in NS 100 ML IV SCH (10:44)
[2016-05-30] MEDS: MICAFUNGIN NA 100 MG in NS 100 ML IV SCH (10:44)
[2016-05-30] MEDS: ENOXAPARIN 40 MG/0.4 ML SYR SC SCH (11:42)
[2016-05-30] MEDS: LISINOPRIL 5 MG TAB PO SCH (11:43)
[2016-05-30] MEDS: CARVEDILOL 6.25 MG TAB PO SCH (11:44)
[2016-05-30] MEDS: ATORVASTATIN CALCIUM 10 MG TAB PO SCH (11:44)
[2016-05-30] MEDS: DOCUSATE SODIUM 100 MG CAP PO SCH ×2 (11:44→20:22)
--- NOTE | 2016-05-30 12:49 | PCMIDPN ---
Assessment/Plan: Assessment/Plan: 1. Necrotic Soft tissue infection involving buttock, perineum, scrotum: -Initially with perirectal abscess with cx growing Group A Strep. Subsequent extension of infection requiring debridement in OR.'- - Cx with E. coli, bacteroids and non-albicans hailey now. - Given extent of debridement required, extension of infection , cx etc, - antibiotics changed to invanz/micafungin - will have micro do further ID/sensitivities on the yeast. - wound vac changed today- wound improved. -Tentative plan is to continue antibiotics until at least 06/05/16. Depending on next wound vac change will determine if needs longer. -Pt has appt 06/04/16 at 10am with me. - Care coordinated with Dr. Victor. Meds invanz 1g daily- 05/29/16 micafungin: 100mg daily-05/29/16 Subjective: afebrile. back from OR wound vac change. less pain at present. denies sob, abd pain or diarrhea. still has pain if tries to sit up. Objective: Vital Signs Temp Pulse Resp BP Pulse Ox 36.4 C 80 16 109/64 93 05/30/16 12:10 05/30/16 12:10 05/30/16 12:10 05/30/16 12:10 05/30/16 12:10 Microbiology 05/24/16 12:00 Gram Stain - Final Buttock - Tissue Laboratory Results 05/30/16 08:02 05/29/16 04:30 05/29/16 05/30/16 05/31/16 05:59 05:59 05:59 Intake Total 375 700 Output Total 1100 5 Balance -725 695 - Physical Exam General Appearance: alert, no apparent distress Respiratory: lungs clear Cardiac/Chest: regular rate, rhythm Extremities: No swelling Skin: other (buttocks/perineum: wound vac noted. pic from OR reviewed: nice granulation tissue throughout wound without obvious evidence of necrotic tissue. wound edges appear less indurated, and leighann wound vac the area is less indurated on clnical exam. Wound extends from perineum/left buttock to base of scrotum.) ICD10 Worksheet Patient Problems: Problems Problem Status Diagnosed Hypotension Acute Rectal abscess Acute Rectal cellulitis Acute Rectal pain Acute Scrotal edema Acute Septic shock Acute
[2016-05-30] MEDS: TEMAZEPAM 15 MG CAP PO PRN (23:36)
[2016-05-31] MEDS: HYDROCODONE/APAP 5/325 TAB PO PRN ×5 (05:17→21:57)
[2016-05-31] MEDS: LORazepam 1 MG TAB PO PRN ×2 (05:57→16:33)
[2016-05-31] MEDS: MICAFUNGIN NA 100 MG in NS 100 ML IV SCH (09:05)
[2016-05-31] MEDS: CARVEDILOL 6.25 MG TAB PO SCH (09:15)
[2016-05-31] MEDS: LISINOPRIL 5 MG TAB PO SCH ×2 (09:17→09:26)
[2016-05-31] MEDS: DOCUSATE SODIUM 100 MG CAP PO SCH ×2 (09:18→21:57)
[2016-05-31] MEDS: ENOXAPARIN 40 MG/0.4 ML SYR SC SCH (09:18)
[2016-05-31] MEDS: ATORVASTATIN CALCIUM 10 MG TAB PO SCH (09:18)
[2016-05-31] MEDS: ERTAPENEM 1 GM in NS 100 ML IV SCH (09:20)
[2016-05-31] MEDS ORDERED: LIDOCAINE 2% 100 MG/5 ML SYR IVP ONE (12:02)
--- NOTE | 2016-05-31 12:35 | SOAPPROG ---
SOAP Progress Note Assessment/Plan: Assessment: s/p I&D left buttock/perineum/scrotum Plan: wound vac leaking, wet-to-dry dressing placed possible delayed primary closure over Braulio drain tomorrow in OR 05/31/16 12:33 Subjective: pain controlled having BMs QOD Objective: Vital Signs Temp Pulse Resp BP Pulse Ox 36.5 C 85 12 106/73 93 05/31/16 07:23 05/31/16 07:23 05/31/16 07:23 05/31/16 07:23 05/31/16 07:23 Microbiology 05/24/16 12:00 Gram Stain - Final Buttock - Tissue Laboratory Results 05/30/16 08:02 05/29/16 04:30 05/30/16 05/31/16 06/01/16 05:59 05:59 05:59 Intake Total 700 Output Total 5 Balance 695 Physical Exam - Physical Exam General Appearance: alert Rectal: other (wound with healthy granulating base, no surrounding erythema or induration) ICD10 Worksheet Patient Problems: Problems Problem Status Diagnosed Hypotension Acute Rectal abscess Acute Rectal cellulitis Acute Rectal pain Acute Scrotal edema Acute Septic shock Acute
[2016-05-31] MEDS: TEMAZEPAM 15 MG CAP PO PRN (21:59)
[2016-06-01] MEDS: HYDROCODONE/APAP 5/325 TAB PO PRN (04:37)
[2016-06-01] MEDS: LORazepam 1 MG TAB PO PRN (04:39)
[2016-06-01] MEDS: LISINOPRIL 5 MG TAB PO SCH (08:35)
[2016-06-01] MEDS: CARVEDILOL 6.25 MG TAB PO SCH (08:35)
[2016-06-01] MEDS: ERTAPENEM 1 GM in NS 100 ML IV SCH (08:36)
[2016-06-01] MEDS: MICAFUNGIN NA 100 MG in NS 100 ML IV SCH (08:41)
[2016-06-01] MEDS ORDERED: BUPIVACAINE 0.5% 30 ML SDV ONE ×2 (09:48→10:01)
[2016-06-01] MEDS ORDERED: MIDAZOLAM 2 MG/2 ML VIAL ONE (10:06)
[2016-06-01] MEDS ORDERED: PROPOFOL/EMULSION 500 MG/50 ML BOTTLE IV ONE (10:10)
[2016-06-01] MEDS ORDERED: fentaNYL 100 MCG/2 ML INJ ONE ×2 (10:10→11:29)
[2016-06-01] MEDS ORDERED: LIDOCAINE 2% 5 ML SDV ONE (10:12)
[2016-06-01] MEDS ORDERED: ESMOLOL HCL 100 MG/10 ML VIAL IV ONE (10:16)
[2016-06-01] MEDS ORDERED: HYDROmorphONE/DILAUDID 1 MG/ML SYR ONE (11:29)
[2016-06-01] MEDS ORDERED: HYDROCODONE/APAP 5/325 TAB ONE (11:29)
--- NOTE | 2016-06-01 12:30 | GOP ---
[f rep st] OPERATIVE REPORT DATE OF OPERATION: SURGEON: Alexandra Victor MD PREOPERATIVE DIAGNOSIS: Soft tissue infection of the left buttock, perineum and scrotum. POSTOPERATIVE DIAGNOSIS: Soft tissue infection of the left buttock, perineum and scrotum. PROCEDURE PERFORMED: Delayed primary closure of left buttock, perineal and scrotal wound. FINDINGS: Clean granulating base with no residual necrotic tissue and no signs of infection. SPECIMENS: None. ESTIMATED BLOOD LOSS: Less than 5 mL. INDICATIONS: Bebeto is a 60-year-old man who underwent debridement of a necrotizing soft tissue inf ection of his left buttock, perineal and scrotal region on 05/24/2016. He had a wound VAC placed at that time, and has been hospitalized for regular wound VAC changes under anesthesia as well as contin ued IV antibiotic therapy. He has required no further debridements in the past week as he has had no further tissue necrosis or signs of infection. He opted for an attempted delayed primary closure ov er a drain. DESCRIPTION OF PROCEDURE: After informed consent was obtained and therapeutic antibiotics were melissa nued, the patient was taken to the operating room, placed in a supine position. SCDs were placed to bilateral lower extremities. General anesthesia was administered. He was repositioned in the prone position and prepped and draped in a sterile fashion. After an appropriate surgical pause, 30 mL of local anesthetic was injected around the wound, and the wound was closed using interrupted 3-0 nylon vertical mattress sutures with a few intervening interrupted 3-0 Vicryl deep dermal sutures. The wou nd was closed over a half-inch Welches drain which was also secured in place at the skin using 3-0 ny taj suture. Bacitracin ointment was applied. A pad and mesh briefs were placed. The patient was re positioned in a supine position, awakened from anesthesia, and taken to the post anesthesia recovery unit. /[id number]/MODL
[2016-06-01] MEDS: ENOXAPARIN 40 MG/0.4 ML SYR SC SCH (13:02)
[2016-06-01] MEDS: ATORVASTATIN CALCIUM 10 MG TAB PO SCH (13:04)
[2016-06-01] MEDS: DOCUSATE SODIUM 100 MG CAP PO SCH (13:04)
[2016-06-01 13:49] VITALS: BP 138/89; PULSE 87; RESP 18; TEMP 97.6; O2SAT 95
--- NOTE | 2016-06-01 14:34 | PDIAF ---
- Diagnosis Diagnosis: soft tissue infection perineum Code Status: Full Code - Medication Management Discharge Medications: Medications to Continue on Transfer Aspirin [Aspirin 325 mg (*)] 325 mg PO DAILY 05/06/16 [Last Taken 05/23/16] Carvedilol [Coreg (*)] 12.5 mg PO DAILY 05/06/16 [Last Taken 05/23/16] Lisinopril [Zestril 2.5 mg (*)] 2.5 mg PO DAILY 05/06/16 [Last Taken 05/23/16] Simvastatin [Zocor] 20 mg PO DAILY 05/06/16 [Last Taken 05/23/16] traZODone [traZODONE 100MG (*)] 100 mg PO HS PRN 05/06/16 [Last Taken 05/23/16] Ibuprofen [Motrin (*)] 400 mg PO Q6HRS PRN #0 tab 05/15/16 [Last Taken 05/23/16] Docusate Sodium [Colace 100 MG (*)] 100 mg PO BID 05/24/16 [Last Taken 05/23/16] Docusate Sodium [Colace 100 MG (*)] 100 mg PO BID #30 cap 06/01/16 [Last Taken Unknown] Ertapenem [INVanz] 1 gm IV DAILY #0 vial 06/01/16 [Last Taken Unknown] Hydrocodone/APAP 5/325 [[place] 5/325 (*)] 2 tab PO Q4HRS PRN #40 tab 06/01/16 [ Last Taken Unknown] LORazepam [Ativan (*)] 1 mg PO Q8 PRN #20 tab 06/01/16 [Last Taken Unknown] Micafungin Na [Mycamine 100Mg Vial] 100 mg IV DAILY #0 vial 06/01/16 [Last Taken Unknown] Alf Antibiotics: yes Cylinder Tester Antibiotic Stop Date: 06/08/16 Discharge Medications: Refer to the Discharge Home Medication list for PRN reason. - Orders Diet Recommendation: no restrictions on diet Sutures/[place] Site: perineum. Dr. Victor will remove on follow-up visit in 7- 14 days - Labs/Radiology CBC Date: 06/04/16 CMP Date: 06/04/16 - Follow Up Care Current Providers and Referrals: OUT OF STATE,. [Primary Care Provider] - Alexandra Victor MD [Medical Doctor] - (06/07/16 at 1:30 p.m.) Laurence Cash MD [Medical Doctor] - (Saturday06/04/16 with CBC, CMP)
--- NOTE | 2016-06-01 16:42 | PDIAF ---
- Diagnosis Diagnosis: soft tissue infection perineum Code Status: Full Code - Medication Management Discharge Medications: Medications to Continue on Transfer Aspirin [Aspirin 325 mg (*)] 325 mg PO DAILY 05/06/16 [Last Taken 05/23/16] Carvedilol [Coreg (*)] 12.5 mg PO DAILY 05/06/16 [Last Taken 05/23/16] Lisinopril [Zestril 2.5 mg (*)] 2.5 mg PO DAILY 05/06/16 [Last Taken 05/23/16] Simvastatin [Zocor] 20 mg PO DAILY 05/06/16 [Last Taken 05/23/16] traZODone [traZODONE 100MG (*)] 100 mg PO HS PRN 05/06/16 [Last Taken 05/23/16] Ibuprofen [Motrin (*)] 400 mg PO Q6HRS PRN #0 tab 05/15/16 [Last Taken 05/23/16] Docusate Sodium [Colace 100 MG (*)] 100 mg PO BID 05/24/16 [Last Taken 05/23/16] Docusate Sodium [Colace 100 MG (*)] 100 mg PO BID #30 cap 06/01/16 [Last Taken Unknown] Ertapenem [INVanz] 1 gm IV DAILY #0 vial 06/01/16 [Last Taken Unknown] Hydrocodone/APAP 5/325 [[place] 5/325 (*)] 2 tab PO Q4HRS PRN #40 tab 06/01/16 [ Last Taken Unknown] LORazepam [Ativan (*)] 1 mg PO Q8 PRN #20 tab 06/01/16 [Last Taken Unknown] Micafungin Na [Mycamine 100Mg Vial] 100 mg IV DAILY #0 vial 06/01/16 [Last Taken Unknown] Assisted Antibiotics: Invanz 1 g IV q24, Micafungin 100 mg IV q24 Credit Review Analyst Antibiotic Stop Date: 06/08/16 Discharge Medications: Refer to the Discharge Home Medication list for PRN reason. - Orders Diet Recommendation: no restrictions on diet Sutures/[place] Site: perineum. Dr. Victor will remove on follow-up visit in 7- 14 days - Labs/Radiology CBC Date: 06/04/16 CMP Date: 06/04/16 Call or Fax Lab and Imaging Results to: Dr. Cash, - Follow Up Care Current Providers and Referrals: OUT OF STATE,. [Primary Care Provider] - Laurence Cash MD [Medical Doctor] - (Saturday06/04/16 with CBC, CMP) Alexandra Victor MD [Medical Doctor] - (06/07/16 at 1:30 p.m.)
== END 2016-06-01 16:55 | disposition home or self-care (01) | DRG 921 ==
LOC: FSGY 09:11 → EDSTATUS 10:30 → F3E 13:05
PROVIDERS: ADMIT Surgery; ATTEND Surgery
PROC: 0HBAXZX Excision of Inguinal Skin, External Approach, Diagnostic (ICD-10-PCS; principal; 2016-05-24 10:30)
PROC: 0JBB0ZX Excision of Perineum Subcutaneous Tissue and Fascia, Open Approach, Diagnostic (ICD-10-PCS; principal; 2016-05-24 10:30)
PROC: 0JB90ZX Excision of Buttock Subcutaneous Tissue and Fascia, Open Approach, Diagnostic (ICD-10-PCS; principal; 2016-05-24 10:30)
PROC: 2W15X6Z Compression of Back using Pressure Dressing (ICD-10-PCS; 2016-05-27)
PROC: 2W15X6Z Compression of Back using Pressure Dressing (ICD-10-PCS; 2016-05-30)
PROC: 0HQ8XZZ Repair Buttock Skin, External Approach (ICD-10-PCS; 2016-06-01 10:00)
PROC: 0HQAXZZ Repair Inguinal Skin, External Approach (ICD-10-PCS; 2016-06-01 10:00)
PROC: 0HQ9XZZ Repair Perineum Skin, External Approach (ICD-10-PCS; 2016-06-01 10:00)
DX: T81.9XXA Unspecified complication of procedure, initial encounter (principal); I25.10 Atherosclerotic heart disease of native coronary artery without angina pectoris; Z95.5 Presence of coronary angioplasty implant and graft
CPT/HCPCS: 87186-90; J0696; J1100; J1170; J1335; J1650; J1885; J2001; J2248; J2250; J2370; J2405; J2704; J2765; J3010